=== PATIENT | male | born 1980 | race Caucasian/White ===

== ENCOUNTER 2023-03-21 13:58 | Inpatient (IN) ==
--- NOTE | 2023-03-21 14:12 | ED Triage Note ---
Date of Service March 21, 2023 Provider in Triage Author: Wade Florez. History of Present Illness This patient was briefly evaluated while in triage. An abbreviated physical exam was performed. This patient is a 42-year-old Male who presents to the ED for evaluation of worsening epigastric pain nausea vomiting diarrhea since Sunday. Eyes are now yellow. Family history of gallbladder problems. He states he has had problems with it over the past few years. No prior diagnostic studies. Symptoms are worsened by different food intake. [place] like he could not breathe on Sunday felt like he was having a heart attack. Physical Exam CONSTITUTIONAL: in no acute pain or distress, resting comfortably EYES: scleral icterus SKIN: pink, warm, dry CARDIAC: regular rate and rhythm RESPIRATORY: in no respiratory distress, lungs clear to auscultation ABDOMEN: mild epigastric tender Initial orders for labs and / or imaging were placed and patient was placed in the waiting area until a bed is available. Please see further documentation for the full ED course.
--- NOTE | 2023-03-21 14:50 | XRay Report ---
XR chest 1V not portable HISTORY: episodic epigastric pain/dyspnea COMPARISON: Chest 06/06/2013 FINDINGS: The lungs are clear. Cardiac silhouette is normal in size. No pleural effusions. No pneumot horax. Small nodular density within the right lateral lung base favors a nipple shadow. This will be assessed on the same day abdomen and pelvis CT. IMPRESSION: 1. No acute process within the chest. 2. A small nodular density within the right lateral lung base favors a nipple shadow and will be bett er assessed on the same day abdomen and pelvis CT ACT 112: Negative or not required by law. Electronically signed by: Dc Vega M.D. 03/21/2023 2:49 PM
[2023-03-21 15:07] LABS: Basophils # (auto) 0.02 K/uL (0.00-0.20); Basophils % (auto) 0.4 %; Eosinophils # (auto) 0.11 K/uL (0.00-0.50); Eosinophils % (auto) 2.1 %; Hemoglobin 19.1 g/dl (14.0-18.0); Immature Granulocytes # (auto) 0.02 K/uL (0.01-0.20); Immature Granulocytes % (auto) 0.4 %; Lymphocytes # (auto) 1.19 K/uL (1.20-3.40); Mean Corpuscular Hemoglobin 34.1 pg (25.0-34.0); Mean Corpuscular Hgb Conc 35.4 g/dL (32.0-36.0); Mean Corpuscular Volume 96.4 fL (80.0-100.0); Mean Platelet Volume 10.3 fL (9.4-12.4); Monocytes # (auto) 0.56 K/uL (0.11-0.59); Monocytes % (auto) 10.8 %; Neutrophils # (auto) 3.27 K/uL (1.40-6.50); Neutrophils % (auto) 63.3 %; Platelet Count 199 K/uL (130-400); RDW Coefficient of Variation 13.2 % (11.5-14.5); RDW Standard Deviation 47.1 fL (36.4-46.3); White Blood Count 5.17 K/ul (4.8-10.8)
[2023-03-21 15:25] LABS: Albumin Globulin Ratio 1.6 (0.9-2); Albumin Level 4.4 gm/dl (3.4-5.0); BUN Creatinine Ratio 6.5 (10-20); Creatinine Clr Calc Pharmacy 123.7 ml/min; Est GFR (African American) 116.9 ml/min; Est GFR (Non-African American) 100.9 ml/min; Globulin 2.7 gm/dl (2.5-4.0); Potassium 3.6 mmol/L (3.5-5.1); Total Protein 7.1 gm/dl (6.0-8.3)
[2023-03-21 15:31] LABS: Troponin I High Sensitivity 3.2 pg/ml (0-20)
[2023-03-21] MEDS ORDERED: OPTIRAY 320 500ml IV ONE (15:42)
--- NOTE | 2023-03-21 16:13 | CT Scan Report ---
CT SCAN OF THE ABDOMEN AND PELVIS WITH IV CONTRAST CLINICAL HISTORY: Epigastric abdominal pain. Vomiting and diarrhea. Jaundice. COMPARISON STUDY: Abdominal ultrasound dated 10/06/2013. TECHNIQUE: Following the IV administration of 80 cc of Optiray 320, CT scan of the abdomen and pelvi s is performed from the lung bases to the proximal femora. Images are reviewed in the axial, sagittal , and coronal planes. IV contrast was administered without complication. A dose lowering technique wa s utilized adhering to the principles of ALARA. CT DOSE: 1308.19 mGy.cm FINDINGS: Lung bases: The heart is normal in size and without pericardial effusion. A low suspicion 4 mm pleura l-based nodule at the right lung base is seen on image #39. The lung bases are otherwise clear noting mild bibasilar atelectasis. Liver: The contrast-enhanced liver is normal in size, contour, and attenuation. There is mild intrahe patic biliary ductal dilatation. The hepatic veins and portal veins are patent. Gallbladder: The gallbladder is mildly distended and contains stones/sludge. There is no CT evidence of acute cholecystitis. The common bile duct is dilated, measuring up to 13 mm in diameter. Spleen: Normal in size and attenuation. Pancreas: Unremarkable. Adrenal glands: Unremarkable. Kidneys: The contrast enhanced kidneys are normal in size and without hydronephrosis. The kidneys enh ance symmetrically. A 1.9 cm cyst is noted in the right lower pole. Abdominal vasculature: The abdominal aorta is normal in course and caliber. Bowel: There is no bowel obstruction. The appendix is well-visualized and normal. Peritoneum: There is no intraperitoneal free air or abdominal ascites. There is a fat-containing umbi lical hernia. Lymphadenopathy: None. Pelvic viscera: The bladder, prostate, and seminal vesicles are normal as imaged. Skeletal structures: No lytic or blastic lesions are seen. IMPRESSION: 1. There is mild intra and extrahepatic biliary ductal dilatation. No obstructing stone or lesion is clearly identified by CT. 2. There are gallstones and biliary sludge with no CT evidence of acute cholecystitis. Consider a rig ht upper quadrant ultrasound in follow-up to further assess these findings. 3. Additional findings as above. ACT 112: Negative or not required by law. Electronically signed by: Otoniel De Anda M.D. 03/21/2023 4:10 PM
[2023-03-21] MEDS ORDERED: PIPERACILLIN/TAZOBACTAM 4.5 GM/100 ML BAG IV ONE (16:41)
[2023-03-21] MEDS ORDERED: SODIUM CHLORIDE 0.9% 1,000 ML IV ONE (16:42)
--- NOTE | 2023-03-21 16:52 | Emergency Department Note ---
Impression & Plan Jaundice, Alcohol use, Abdominal pain, Elevated LFTs, Gallstone, Hyperbilirubinemia ED Provider Note NAME: HANNAH JARA AGE: 42 SEX: M : 1980 ARRIVES VIA: Walk-In INFORMANT: Patient, ED PROVIDER(S): Lazaro Gamble DO CHIEF COMPLAINT: Abdominal pain HPI: The patient is a 42-year-old male who does have a history of chronic alcohol use who presented to the emergency department for abdominal pain. The patient describes right upper quadrant abdominal pain which began over the course the last few days. It does worsen with food. The patient denies having any fever or vomiting. He has noticed that his urine has become dark. He has not been seen by his family doctor. The patient currently does not have a family doctor. ROS: See above HPI for pertinent positives & negatives. A total of 10 systems reviewed and were otherwise negative. PAST MEDICAL HISTORY: See Below PAST SURGICAL HISTORY: See Below FAMILY HISTORY: See Below SOCIAL HISTORY: See Below HOME MEDICATIONS: See Below ALLERGIES: See Below VITALS: See Below PHYSICAL EXAMINATION: GENERAL: Patient is awake alert in no acute distress patient is resting comfortably and showing no signs of anxiety EYES: The conjunctivae are icteric. The pupils are round and reactive. EARS, NOSE, MOUTH AND THROAT: The nose is without any evidence of any deformity. NECK: The neck is nontender and supple. RESPIRATORY: Normal respiratory effort is noted there is no evidence of wheezing rhonchi or rales CARDIOVASCULAR: Regular rate and rhythm noted there no murmurs rubs or gallops normal S1 normal S2. GASTROINTESTINAL: The abdomen is soft. There is right upper quadrant tenderness palpation but there is no guarding rigidity MUSCULOSKELETAL/EXTREMITIES: There is no evidence of gross deformity full range of motion is noted in the hips and shoulders. SKIN: There is no obvious evidence of any rash. There are no petechiae, pallor or cyanosis noted. NEUROLOGIC: Patient is awake alert and oriented x3 MEDICAL DECISION MAKING: The patient is a 42-year-old male who presented to the emergency department for an evaluation of abdominal pain. The patient does have a history of alcohol use. The patient was found to have signs of elevated bilirubin and gallstones noted on CT. The patient had the possibility of obstructive jaundice noted on CT with ductal dilatation. This could be secondary to gallstone or possibly related to his underlying alcohol use. I discussed his condition with the blocker and polisher. He was treated with IV fluids and IV antibiotics. He was reevaluated multiple times. At this time he will likely require an ERCP. I discussed his condition with the on-call [facility]. They have agreed to evaluate the patient in the emergency department for further management and disposition. Triage Nursing notes reviewed. Prior medical records reviewed Vital Signs: reviewed and remarkable for elevated blood pressure. Differential diagnosis: Etiologies such as appendicitis, diverticulitis, obstruction, inflammatory bowel disease, renal colic, PUD, biliary pathology, pancreatitis, mesenteric ischemia, aortic pathology, infections, genitourinary, UTI, perforated viscus, as well as others were entertained. ER treatment provided: See below Diagnostics interpreted by me: ECG: EKG was obtained in the emergency department. My interpretation is sinus tachycardia at [address] segment abnormalities were noted. No previous tracing was available Cardiac Monitoring: An order was placed for continuous cardiac monitoring. The monitor shows a rate of 94 bpm with sinus rhythm Laboratory studies: As stated above and show below. Imaging studies: See below. Radiographic imaging was reviewed by myself Consultation(s): I discussed this case with Dr. Arnett who is on for gastroenterology. I discussed this case with Phyllis who was economic development coordinator for the [facility] Past Med/Surg History Medical History (Updated 03/21/23 @ 21:07 by Lazaro Gamble DO) Alcohol use Fx metatarsal-closed Infectious mononucleosis Surgical History (Updated 03/21/23 @ 18:02 by Yolanda Fernandes PA-C) H/O foot surgery Family History (Updated 03/21/23 @ 18:01 by Yolanda Fernandes PA-C) Father FH: cirrhosis Social History (Updated 03/21/23 @ 18:04 by Yolanda Fernandes PA-C) Smoking Status: Former smoker Hx Alcohol Use: Yes Hx Substance Use: Yes Prescribed Medications: Marijuana Feels Safe at Home: Yes Allergies Allergies Allergy/AdvReac Type Severity Reaction Status Date / Time No Known Allergies Allergy Unknown Verified 03/17/08 18:22 Results & Data (ED) Vital Signs Vital Signs - 24 hr 03/21/23 14:03 03/21/23 16:01 03/21/23 16:02 Temperature 36.8 C Temperature Source Temporal Artery Scan Pulse Rate 111 H Pulse Rate [Finger] 114 H Respiratory Rate 18 20 Respiratory Effort / Characteristics Non-Labored Spontaneous Non-Labored Spontaneous Respiratory Depth Normal Normal Respiratory Pattern Regular Regular Blood Pressure 133/95 Blood Pressure [Right Arm] 131/98 Blood Pressure Mean 107 Blood Pressure Mean [Right Arm] 109 Blood Pressure Position Sitting Pulse Oximetry 96 98 Oxygen Delivery Method Room Air Room Air Room Air Sepsis Recent Fever Within 48 Hours No Sepsis New/Unexplained Change in Mental Status No Sepsis Action Taken by Nursing No Action Required 03/21/23 16:57 03/21/23 16:58 03/21/23 17:00 Temperature Temperature Source Pulse Rate 108 H 105 H 101 H Pulse Rate [Finger] Respiratory Rate 12 10 L Respiratory Effort / Characteristics Respiratory Depth Respiratory Pattern Blood Pressure Blood Pressure [Right Arm] Blood Pressure Mean Blood Pressure Mean [Right Arm] Blood Pressure Position Pulse Oximetry Oxygen Delivery Method Sepsis Recent Fever Within 48 Hours Sepsis New/Unexplained Change in Mental Status Sepsis Action Taken by Snf Medications Current Medication List: was personally reviewed by me Laboratory Data Attestation: I reviewed the patient's lab results. 03/21/23 14:30 03/21/23 14:30 Lab Results 03/21/23 03/21/23 Range/Units 14:30 17:11 WBC 5.17 (4.8-10.8) K/ul RBC 5.60 (4.70-6.10) M/uL Hgb 19.1 H (14.0-18.0) g/dl Hct 54.0 H (42.0-52.0) % MCV 96.4 (80.0-100.0) fL MCH 34.1 H (25.0-34.0) pg MCHC 35.4 (32.0-36.0) g/dL RDW Std Deviation 47.1 H (36.4-46.3) fL RDW Coeff of Bishop 13.2 (11.5-14.5) % Plt Count 199 (130-400) K/uL MPV 10.3 (9.4-12.4) fL Immature Gran % (Auto) 0.4 % Neut % (Auto) 63.3 % Lymph % (Auto) 23.0 % [place] % (Auto) 10.8 % Eos % (Auto) 2.1 % Baso % (Auto) 0.4 % Neut # (Auto) 3.27 (1.40-6.50) K/uL Lymph # (Auto) 1.19 L (1.20-3.40) K/uL [place] # (Auto) 0.56 (0.11-0.59) K/uL Eos # (Auto) 0.11 (0.00-0.50) K/uL Baso # (Auto) 0.02 (0.00-0.20) K/uL Immature Gran # (Auto) 0.02 (0.01-0.20) K/uL Sodium 138 (136-145) mmol/L Potassium 3.6 (3.5-5.1) mmol/L Chloride 102 (98-107) mmol/L Carbon Dioxide 24 (21-32) mmol/L Anion Gap 12 H (3-11) BUN 6 (6-23) mg/dl Creatinine 0.93 (0.6-1.4) mg/dl Est Cr Clr Drug Dosing 123.7 ml/min Est GFR ( Amer) 116.9 ml/min Est GFR (Non-Af Amer) 100.9 ml/min BUN/Creatinine Ratio 6.5 L (10-20) Glucose 111 H (70-99(Fasting)) mg/dl Calcium 10.0 (8.6-10.3) mg/dl Total Bilirubin 8.0 H (0.2-1.0) mg/dl Direct Bilirubin 4.4 H (0-0.2) mg/dl AST 278 H (13-39) U/L ALT 347 H (7-52) U/L Alkaline Phosphatase 101 (34-104) U/L Troponin I High Sens 3.2 (0-20) pg/ml Total Protein 7.1 (6.0-8.3) gm/dl Albumin 4.4 (3.4-5.0) gm/dl Globulin 2.7 (2.5-4.0) gm/dl Albumin/Globulin Ratio 1.6 (0.9-2) Lipase 24 (11-82) U/L Ethyl Alcohol mg/dL < 10.0 (<10.0) mg/dl Administered Medications Discontinued Medications Piperacillin Sod/Tazobactam Sod (Zosyn) 4.5 gm in 100 mls @ 200 mls/hr IV NOW ONE Stop: 03/21/23 17:10 Last Admin: 03/21/23 16:55 Dose: 200 mls/hr Documented By: TWILA Sodium Chloride (Nss) 1,000 mls @ 999 mls/hr IV .Q1H1M ONE Stop: 03/21/23 17:42 Last Admin: 03/21/23 16:52 Dose: 999 mls/hr Documented By: TWILA Ioversol (Optiray 320 500ml) 80 ml IV ONCE ONE Stop: 03/21/23 15:43 Last Admin: 03/21/23 15:42 Dose: 80 ml Documented By: BRADEN Imaging Data Attestation: I personally reviewed and interpreted this imaging study as follows: My Impression: CT of the abdomen and pelvis was obtained in the emergency department. My interpretation is no free air or signs of bowel obstruction, final report below Radiologist's Impression: Abdomen/Pelvis CT 03/21/23 14:07 CT SCAN OF THE ABDOMEN AND PELVIS WITH IV CONTRAST CLINICAL HISTORY: Epigastric abdominal pain. Vomiting and diarrhea. Jaundice. COMPARISON STUDY: Abdominal ultrasound dated 10/06/2013. TECHNIQUE: Following the IV administration of 80 cc of Optiray 320, CT scan of the abdomen and pelvis is performed from the lung bases to the proximal femora. Images are reviewed in the axial, sagittal, and coronal planes. IV contrast was administered without complication. A dose lowering technique was utilized adhering to the principles of ALARA. CT DOSE: 1308.19 mGy.cm FINDINGS: Lung bases: The heart is normal in size and without pericardial effusion. A low suspicion 4 mm pleural-based nodule at the right lung base is seen on image #39. The lung bases are otherwise clear noting mild bibasilar atelectasis. Liver: The contrast-enhanced liver is normal in size, contour, and attenuation. There is mild intrahepatic biliary ductal dilatation. The hepatic veins and portal veins are patent. Gallbladder: The gallbladder is mildly distended and contains stones/sludge. There is no CT evidence of acute cholecystitis. The common bile duct is dilated, measuring up to 13 mm in diameter. Spleen: Normal in size and attenuation. Pancreas: Unremarkable. Adrenal glands: Unremarkable. Kidneys: The contrast enhanced kidneys are normal in size and without hydronephrosis. The kidneys enhance symmetrically. A 1.9 cm cyst is noted in the right lower pole. Abdominal vasculature: The abdominal aorta is normal in course and caliber. Bowel: There is no bowel obstruction. The appendix is well-visualized and normal. Peritoneum: There is no intraperitoneal free air or abdominal ascites. There is a fat-containing umbilical hernia. Lymphadenopathy: None. Pelvic viscera: The bladder, prostate, and seminal vesicles are normal as imaged. Skeletal structures: No lytic or blastic lesions are seen. IMPRESSION: 1. There is mild intra and extrahepatic biliary ductal dilatation. No obstructing stone or lesion is clearly identified by CT. 2. There are gallstones and biliary sludge with no CT evidence of acute cholecystitis. Consider a right upper quadrant ultrasound in follow-up to further assess these findings. 3. Additional findings as above. ACT 112: Negative or not required by law. Electronically signed by: Otoniel De Anda M.D. 03/21/2023 4:10 PM Chest X-Ray 03/21/23 14:08 XR chest 1V not portable HISTORY: episodic epigastric pain/dyspnea COMPARISON: Chest 06/06/2013 FINDINGS: The lungs are clear. Cardiac silhouette is normal in size. No pleural effusions. No pneumothorax. Small nodular density within the right lateral lung base favors a nipple shadow. This will be assessed on the same day abdomen and pelvis CT. IMPRESSION: 1. No acute process within the chest. 2. A small nodular density within the right lateral lung base favors a nipple shadow and will be better assessed on the same day abdomen and pelvis CT ACT 112: Negative or not required by law. Electronically signed by: Dc Vega M.D. 03/21/2023 2:49 PM Discharge Plan Visit Data Chief Complaint: Abdominal Pain Stated Complaint: PROBLEMS WITH GALLBLADDER ED Provider: Lazaro Gamble Discharge Problem: Jaundice, Alcohol use, Abdominal pain, Elevated LFTs, Gallstone, Hyperbilirubinemia Patient Disposition: Admitted As Inpatient Discharge Instructions Interventions: ED Discharge Assessment Last Done: 03/21/23 20:32 Discharge Problem: Abdominal pain Qualifiers: Abdominal location: upper abdomen, unspecified Qualified Code(s): R10.10 - Upper abdominal pain, unspecified Gallstone Qualifiers: Cholecystitis presence: without cholecystitis Biliary obstruction: with biliary obstruction Qualified Code(s): K80.21 - Calculus of gallbladder without cholecystitis with obstruction
[2023-03-21 17:00] LABS: Bilirubin Direct 4.4 mg/dl (0-0.2)
--- NOTE | 2023-03-21 17:44 | History & Physical Report ---
Date of Service March 21, 2023 Assessment & Plan (1) Abdominal pain: (2) Hyperbilirubinemia: (3) Elevated LFTs: (4) Gallstone: Plan: Patient is 42 year old male with PMH ETOH use, medical marijuana use for anxiety, presented to ER with c/o epigastric abdominal pain x 5 days, dark urine, yellow stools. Intermittent epigastric pain after eating fatty foods x 1 year. In ER afebrile, P: 111, BP: 133/95, R: 18, 96% on RA No leukocytosis, T Bili: 8, AST: 278, ALT: 347, Alk Phos: 101, Lipase: WNL CT abd/pelvis: There is mild intra and extrahepatic biliary ductal dilatation. No obstructing stone or lesion is clearly identified by CT. There are gallstones and biliary sludge with no CT evidence of acute cholecystitis. In ER given 1L NSS, Zosyn Currently denies abdominal pain Biliary Colic. Suspect possible passed gallstone or obstructing gallstone NPO midnight IVF Antiemetics, pain medications as needed. US gallbladder GI consult. section hand helper GI contact by ER physician recommends admission for possible procedure tomorrow General surgery consult CBC, CMP in am (5) Sinus tachycardia: Plan: EK, sinus tachycardia per my interpretation IVF Monitor on telemetry (6) Alcohol use: Plan: Drinks 4-8 glasses wine daily. Reported last drink 5 days ago ETOH cessation recommended DVT Prophylaxis SCDs Full Code as per discussion with pt Does not follow with PCP for routine care Pt was seen and care coordinated with Dr Hurley. See addendum History of Present Illness Chief Complaint: Abdominal pain Primary Care Provider: NO PCP Patient is 42 year old male with PMH ETOH use, medical marijuana use for anxiety, presented to ER with c/o abdominal pain x 5 days. History obtained from patient and patient's girlfriend. States for past year having intermittent epigastric pain with eating fatty foods and sometimes with spicy foods. 5 days ago epigastric pain was sharp and radiates to back. Pain across upper abdomen. The last couple days the pain was worse and has continued intermittently. When had the epigastric pain he felt like he was having trouble taking a breath. Otherwise denies SOB or chest pain. Hasn't been eating much past several days. Stools have been loose and watery. Past couple of days stools are yellow in coloration. Past couple days noticed eyes looked yellow. Urine is dark in coloration. States currently not having abdominal pain. Drinks 4-8 glasses of wine daily. Last drank ETOH 5 days ago. Denies history of ETOH withdrawal, seizures or DT's in past. Denies itching. Denies fever/chills, diaphoresis, PANIAGUA, dizziness, syncope, vision changes, neck pain, CP, SOB, palpitations, cough, sore throat, choking, otalgia, rhinorrhea, paresthesias, weakness, extremity edema, rashes, dysuria, hematuria, urinary frequency. Allergies Allergy/AdvReac Type Severity Reaction Status Date / Time No Known Allergies Allergy Unknown Verified 03/17/08 18:22 Past Med/Surg History Medical History (Updated 03/21/23 @ 18:38 by Yolanda Fernandes PA-C) Alcohol use Fx metatarsal-closed Infectious mononucleosis Surgical History (Updated 03/21/23 @ 18:02 by Yolanda Fernandes PA-C) H/O foot surgery Family History (Updated 03/21/23 @ 18:01 by Yolanda Fernandes PA-C) Father FH: cirrhosis Social History (Updated 03/21/23 @ 18:04 by Yolanda Fernandes PA-C) Smoking Status: Former smoker Hx Alcohol Use: Yes Hx Substance Use: Yes Prescribed Medications: Marijuana Feels Safe at Home: Yes Review of Systems Review of Systems: All systems reviewed & are unremarkable except as noted in HPI & below Physical Exam Physical Exam: PE per Dr Hurley Results & Data Results & Data Vital Signs (Past 12 Hours) Vital Signs Temp Pulse Pulse Resp BP BP Pulse Ox 03/21/23 16:58 105 H 03/21/23 16:02 03/21/23 16:01 114 H 20 131/98 98 03/21/23 14:03 36.8 C 111 H 18 133/95 96 O2 Del Method 03/21/23 16:58 03/21/23 16:02 Room Air 03/21/23 16:01 Room Air 03/21/23 14:03 Room Air Laboratory Results Short CBC 03/21/23 Range/Units 14:30 WBC 5.17 (4.8-10.8) K/ul Hgb 19.1 H (14.0-18.0) g/dl Hct 54.0 H (42.0-52.0) % Plt Count 199 (130-400) K/uL BMP 03/21/23 14:30 Sodium 138 Potassium 3.6 Chloride 102 Carbon Dioxide 24 BUN 6 Creatinine 0.93 Glucose 111 H Calcium 10.0 Liver Function 03/21/23 Range/Units 14:30 Total Bilirubin 8.0 H (0.2-1.0) mg/dl Direct Bilirubin 4.4 H (0-0.2) mg/dl AST 278 H (13-39) U/L ALT 347 H (7-52) U/L Alkaline Phosphatase 101 (34-104) U/L Albumin 4.4 (3.4-5.0) gm/dl Diagnostic Findings Abdomen/Pelvis CT 03/21/23 14:07 CT SCAN OF THE ABDOMEN AND PELVIS WITH IV CONTRAST CLINICAL HISTORY: Epigastric abdominal pain. Vomiting and diarrhea. Jaundice. COMPARISON STUDY: Abdominal ultrasound dated 10/06/2013. TECHNIQUE: Following the IV administration of 80 cc of Optiray 320, CT scan of the abdomen and pelvis is performed from the lung bases to the proximal femora. Images are reviewed in the axial, sagittal, and coronal planes. IV contrast was administered without complication. A dose lowering technique was utilized adhering to the principles of ALARA. CT DOSE: 1308.19 mGy.cm FINDINGS: Lung bases: The heart is normal in size and without pericardial effusion. A low suspicion 4 mm pleural-based nodule at the right lung base is seen on image #39. The lung bases are otherwise clear noting mild bibasilar atelectasis. Liver: The contrast-enhanced liver is normal in size, contour, and attenuation. There is mild intrahepatic biliary ductal dilatation. The hepatic veins and portal veins are patent. Gallbladder: The gallbladder is mildly distended and contains stones/sludge. There is no CT evidence of acute cholecystitis. The common bile duct is dilated, measuring up to 13 mm in diameter. Spleen: Normal in size and attenuation. Pancreas: Unremarkable. Adrenal glands: Unremarkable. Kidneys: The contrast enhanced kidneys are normal in size and without hydronephrosis. The kidneys enhance symmetrically. A 1.9 cm cyst is noted in the right lower pole. Abdominal vasculature: The abdominal aorta is normal in course and caliber. Bowel: There is no bowel obstruction. The appendix is well-visualized and normal. Peritoneum: There is no intraperitoneal free air or abdominal ascites. There is a fat-containing umbilical hernia. Lymphadenopathy: None. Pelvic viscera: The bladder, prostate, and seminal vesicles are normal as imaged. Skeletal structures: No lytic or blastic lesions are seen. IMPRESSION: 1. There is mild intra and extrahepatic biliary ductal dilatation. No obstructing stone or lesion is clearly identified by CT. 2. There are gallstones and biliary sludge with no CT evidence of acute cholecystitis. Consider a right upper quadrant ultrasound in follow-up to further assess these findings. 3. Additional findings as above. ACT 112: Negative or not required by law. Electronically signed by: Otoniel De Anda M.D. 03/21/2023 4:10 PM Chest X-Ray 03/21/23 14:08 XR chest 1V not portable HISTORY: episodic epigastric pain/dyspnea COMPARISON: Chest 06/06/2013 FINDINGS: The lungs are clear. Cardiac silhouette is normal in size. No pleural effusions. No pneumothorax. Small nodular density within the right lateral lung base favors a nipple shadow. This will be assessed on the same day abdomen and pelvis CT. IMPRESSION: 1. No acute process within the chest. 2. A small nodular density within the right lateral lung base favors a nipple shadow and will be better assessed on the same day abdomen and pelvis CT ACT 112: Negative or not required by law. Electronically signed by: Dc Vega M.D. 03/21/2023 2:49 PM Supervising Physician Co-Signing Physician Notes History and physical exam performed by me 42 year old man who presents with chronic intermittent upper abd pain. Reports pain has been ongoing for about a year. Usually associated with certain fatty/starchy foods. However, recent episode started on Sunday (5 days ago) and was severe, referred to the back Associated with yellowish stool and darker urine Also noticed yellowish discoloration of his eyes Denied fever, chills, nausea, vomiting, chest pain, abd pain. Drinks alcohol usually 4-8 glasses of wine daily. Last drink was 5 days ago Father had alcoholic cirrhosis On exam General: Well hydrated, no acute distress and not ill appearing Eyes: PERRL, conjunctivae normal, not pale, +icterus, EOM intact bilaterally ENMT: External ear and nose normal, oropharynx normal Respiratory: Normal respiratory effort, no respiratory distress, lungs clear to auscultation, no crackles and no wheezes Cardiovascular: Pulse is RRR. S1 S2 Gastrointestinal (Abdomen): Abdomen is not distended, soft, non-tender to palpation, no guarding, no palpable hepatosplenomegaly, normal bowel sounds Musculoskeletal: No pedal edema Neurologic: Alert and oriented x 3, No focal weakness, sensation grossly intact Psychiatric: Alert and oriented x 3, euthymic affect Labs notable for Hb/HCt of 19.1/54, Total robin 8, direct robin 4.4, AST 278, ALT 347 CT abd/P noted mild intra and extrahepatic biliary ductal dilatation, no obstructing stone/lesion clearly identified. Has gallstones and biliary sludge with no evidence of cholecystitis. Abdominal pain Likely Biliary colic Gall stone Hyperbilirubinemia, likely obstructive based on history and CT findings. No fever, no leukocytosis Got zosyn in ER. Will hold off further antibiotics for now GI consult Will keep NPO PMN for possible ERCP tomorrow depending on GI eval Monitor LFTs Counseled patient regarding alcohol use. He stated he plans to quit completely with current ailment Gen surg c/s for possible cholecystectomy inpatient or outpatient IVF I spent a total of 45 minutes coordinating, documenting and providing care for this patient excluding time spent in performance of separately billed services
[2023-03-21 19:40] LABS: Appearance Urine Clear (Clear); Blood Urine Negative (Negative); Color Urine Dark Yellow; Glucose Urine UA Negative (Negative); Ketones Urine 1+ (Negative); Leukocyte Esterase Urine Negative (Negative); Nitrite Urine Negative (Negative); Protein Urine Negative (Negative); Specific Gravity Urine > 1.045 (1.000-1.030); Urobilinogen Urine Positive (Negative); pH Urine 5.5 (4.5-7.5)
[2023-03-21 19:44] LABS: Bilirubin Urine 1+ (Negative)
[2023-03-21] MEDS ORDERED: POLYETHYLENE (MIRALAX) 17 GM PACK PO PRN (20:34)
[2023-03-21] MEDS ORDERED: ONDANSETRON INJ 2 MG/ML 2 ML VIAL IV PRN (20:34)
[2023-03-21] MEDS ORDERED: KETOROLAC TROMETHAMINE 15 MG/ML VIAL IV PRN (20:34)
[2023-03-21] MEDS: SODIUM CHLORIDE 0.9% 1,000 ML IV SCH (21:00)
--- NOTE | 2023-03-21 21:01 | Ultrasound Report ---
Exam(s): US GALLBLADDER EXAM: US Abdomen Limited, Gallbladder CLINICAL HISTORY: Reason for exam: gallstones. TECHNIQUE: Real-time ultrasound of the right upper quadrant with image documentation. COMPARISON: No relevant prior studies available. FINDINGS: Gallbladder: Sludge and stones within the gallbladder the gallbladder is distended. The sonographic Goncalves sign is not recorded, if high clinical suspicion for acute cholecystitis recommend nuclear medicine HIDA scan for further evaluation. Common bile duct: The CBD measures 10 cm. No intrahepatic ductal dilatation. No stones. Pancreas: Unremarkable as visualized. IMPRESSION: 1. Distended gallbladder with sludge and stones. The sonographic Goncalves sign is not recorded, if high clinical suspicion for acute cholecystitis recommend nuclear medicine HIDA scan for further evaluation. 2. The CBD measures 10 cm. No intrahepatic ductal dilatation. Electronically signed by: Deidre Arauz MD 03/21/23 21:00 PM
[2023-03-21] MEDS: ACETAMINOPHEN 1,000 MG/100 ML VIAL IV PRN (23:40)
[2023-03-22] MEDS: SODIUM CHLORIDE 0.9% 1,000 ML IV SCH (06:37)
[2023-03-22 07:55] LABS: Hematocrit (blood only) 48.9 % (42.0-52.0); Hemoglobin 16.2 g/dl (14.0-18.0); Mean Corpuscular Hemoglobin 33.3 pg (25.0-34.0); Mean Corpuscular Hgb Conc 33.1 g/dL (32.0-36.0); Mean Corpuscular Volume 100.4 fL (80.0-100.0); Mean Platelet Volume 10.2 fL (9.4-12.4); Platelet Count 161 K/uL (130-400); RDW Coefficient of Variation 13.2 % (11.5-14.5); RDW Standard Deviation 49.5 fL (36.4-46.3); Red Blood Count 4.87 M/uL (4.70-6.10); White Blood Count 3.75 K/ul (4.8-10.8)
[2023-03-22 08:13] LABS: Albumin Globulin Ratio 1.7 (0.9-2); Albumin Level 3.5 gm/dl (3.4-5.0); Bilirubin,Total 5.4 mg/dl (0.2-1.0); Calcium 8.7 mg/dl (8.6-10.3); Creatinine Clr Calc Pharmacy 132.2 ml/min; Est GFR (African American) 123.4 ml/min; Est GFR (Non-African American) 106.5 ml/min; Globulin 2.1 gm/dl (2.5-4.0); Potassium 3.7 mmol/L (3.5-5.1); Total Protein 5.6 gm/dl (6.0-8.3)
--- NOTE | 2023-03-22 09:00 | Gastrointestinal Consultation ---
Date of Consultation March 22, 2023 Assessment & Plan (1) Jaundice: (2) Abdominal pain: (3) Dilated bile duct: Plan This presentation of el LFTs, gallstones, robin dil is very suggestive of choledocholithiasis. 1. ERCP today by Dr. Wills. 2. Keep NPO. 3. Continue Zosyn (chills) 4. Further recommendations to follow ERCP. Procedure explained including indication, risks of bleeding, infection, bile duct perforation and infection. Pt would like to go forward w procedure. 5. Briefly discussed his risk for alcohol associated liver dx and advised to abstain from alcohol. No suggestion of cirrhosis on imaging and platelets are normal though on the low side). Supervising Physician Co-Signing Physician Notes I performed a history and physical examination of the patient today, including specifically on physical exam - soft abdomen. I have discussed the patient's management with the advanced practitioner. Please refer to the nurse practitioner's note for the documented findings and plan of care. EUS/ERCP Patient was explained in detail regarding risks, benefits, limitations and alternatives of the above endoscopic procedure. Risks of intravenous sedation used for procedure were also explained. Risks include, but not limited to perforation, bleeding, infection, respiratory distress, cardiac arrest and . Patient is also aware about the possibility of missed lesion. Patient's q uestions were answered. The patient verbalized understanding the information and agreed to undergo the procedure. History of Present Illness Reason for Consultation: elevated LFTs Requesting Physician: Phyllis Ling Attending Physician: Glenda Licea MD History of Present Illness Mr. Emmett Howard is a 42 yr old male w/o a PCP, w a hx of increased ETOH intake (4-8/night but not every night since about age 18 - abstained x about 10 days), medical marijuana use for anxiety, who presented to the ED for epigastric pain which has been present intermittently, after eating high fat foods for appox one year. As pain persisted for about 5 days, he presented to the ED where LFTs were elevated (T Bili 8 ->5 today, AST 278, ALT 347, ALk PHos 101). In the past 5 days, he has had dark urine and light colored BMs. He has had diarrhea and nausea w the pain but no vomiting. He felt chills/sweats lasts night. On arrival, US w gallstones, 10mm CBD. CT w mild I/E robin dil. He is awake, alert, oriented. He is currently AA) and comfortable. His mother/grandmother had gallbladder dx, father of ETOH cirrhosis. Allergies Allergy/AdvReac Type Severity Reaction Status Date / Time No Known Allergies Allergy Unknown Verified 03/17/08 18:22 Patient History Medical History (Updated 03/22/23 @ 09:10 by FELIPE Brumfield) Alcohol use Fx metatarsal-closed Infectious mononucleosis Surgical History (Updated 03/21/23 @ 18:02 by Yolanda Fernandes PA-C) H/O foot surgery Family History (Updated 03/21/23 @ 18:01 by Yolanda Fernandes PA-C) Father FH: cirrhosis Social History (Updated 03/21/23 @ 18:04 by Yolanda Fernandes PA-C) Smoking Status: Never smoker Hx Alcohol Use: Yes Alcohol type: wine Hx Substance Use: Yes Prescribed Medications: Marijuana Last Used Substance Other:: Medical marijuana Preferred Language: Hungarian Communication Ability: Effective Airway Controller Required: No Beliefs That Will Affect Care: None Current Living Situation: Family Current Living Situation Comment: Lives with girlfriend and 3 children Feels Safe at Home: Yes Safety Concerns: Feels Safe At This Time Assistive Devices: None Review of Systems Review of Systems: ROS: Gen: subjective fever, No weakness or weight loss Eyes: + icterus, no eye pain or vision changes Resp: No SOB, no cough Cardio: No palpitations/irregular beats, no chest pain GI: As per HPI otherwise (-) : Denies pain on urination Skin: + jaundice/itching. No rashes or lesions. Physical Exam Constitutional: WD/WN, vitals as above Eyes: mild icterus, PEARLA ENMT: external ear and nose normal, oropharynx normal Neck: trachea midline, no thyromegaly Respiratory: normal respiratory effort, lungs clear to auscultation Cardiovascular: RRR, no murmur, no edema Gastrointestinal (Abdomen): normal bowel sounds, soft, nontender, no hepatosplenomegaly Musculoskeletal: no cyanosis or clubbing, extremities motor strength 5/5 Skin: + jaundice Neurologic: PERRL, EOMI, accommodation nl, no face palsy, no dysarthria Psychiatric: A+Ox3, euthymic affect Lymphatic: no cervical or axillary lymphadenopathy Results & Data Vital Signs (Past 12 Hours) Vital Signs Temp Pulse Pulse Resp BP Pulse Ox O2 Del Method 03/22/23 08:10 37.0 C 95 H 16 145/96 H 96 Room Air 03/22/23 07:42 74 03/22/23 03:29 36.9 C 84 20 119/87 95 Room Air 03/22/23 00:27 103 H 03/21/23 23:49 37.3 C 93 H 20 135/101 H 95 Room Air 03/21/23 21:05 94 H Laboratory Results WBC 3.75, Hb 16, Hct 48, Plts 161, Na 141, K 3.7, Cl 106, CO2 24, BUN 7, Cr 0.8, glucose 85. T [id number], ALT 309, Alk Phos 76 Diagnostic Findings GB US 03/22/23: 1. Distended gallbladder with sludge and stones. The sonographic Goncalves sign is not recorded, if high clinical suspicion for acute cholecystitis recommend nuclear medicine HIDA scan for further evaluation. 2. The CBD measures 10 cm. No intrahepatic ductal dilatation. CTAP w IV 03/22/23: 1. There is mild intra and extrahepatic biliary ductal dilatation. No obstructing stone or lesion is clearly identified by CT. 2. There are gallstones and biliary sludge with no CT evidence of acute cholecystitis. Consider a right upper quadrant ultrasound in follow-up to further assess these findings. (2) Abdominal pain Abdominal location: upper abdomen, unspecified Qualified Code(s): R10.10 - Upper abdominal pain, unspecified
[2023-03-22] MEDS: LACTATED RINGER'S 1,000 ML IV SCH (11:22)
[2023-03-22] MEDS ORDERED: ePHEDrine sulfate 50 MG/ML AMP IV PRN ×2 (11:46→11:52)
[2023-03-22] MEDS ORDERED: ATROPINE SULFATE 0.1 MG/ML 10ML SYR IV PRN ×2 (11:46→11:52)
[2023-03-22] MEDS ORDERED: ONDANSETRON INJ 2 MG/ML 2 ML VIAL IV PRN ×2 (11:46→11:52)
[2023-03-22] MEDS ORDERED: fentaNYL citrate PF 100 MCG/2 ML VIAL IV PRN ×2 (11:46→11:52)
--- NOTE | 2023-03-22 11:46 | Anesthesiology Consultation ---
Date of Service March 22, 2023 Assessment & Plan (1) Encounter for pre-operative examination: Chart Review Chart Review: Acceptable Risk for Surgery and Patient NOT seen in Pre Admission Testing Consults Requested none History Surgery Operation Date: 03/22/23 13:15 Proposed Procedures p Endoscopic Retrograde Cholangiopancreato - Tha Wills MD Height/Weight Height: 6 ft 3 in Weight: 98.7 kg Allergies Allergy/AdvReac Type Severity Reaction Status Date / Time No Known Allergies Allergy Unknown Verified 03/17/08 18:22 Medications Active Medications Generic Name Dose Route Start Last Admin Trade Name Freq PRN Reason Stop Dose Admin Sodium Chloride 1,000 mls @ 100 mls/hr 03/21/23 20:34 03/22/23 06:37 Nss IV 03/22/23 16:33 100 mls/hr .Q10H NICHOLAS Administration Acetaminophen 1,000 mg in 100 mls @ 400 mls/hr 03/21/23 20:34 03/22/23 00:10 Ofirmev IV 03/24/23 20:33 Infused Q12H PRN Infusion Pain or Fever Lactated Ringer's 1,000 mls @ 15 mls/hr 03/22/23 11:30 03/22/23 11:22 Lr IV 04/21/23 11:29 15 mls/hr .Q24H NICHOLAS Administration NPO Date Last Intake of Fluids: 03/21/23 Time Last Intake of Fluids: 23:00 Date Last Intake of Solids: 03/21/23 Time Last Intake of Solids: 23:00 Past Medical History Medical History Alcohol use Fx metatarsal-closed Infectious mononucleosis Past Family History Family History Father FH: cirrhosis Past Surgical History Surgical History H/O foot surgery Social History Smoking Status: Never smoker Hx Alcohol Use: Yes Alcohol type: wine alcohol intake frequency: 3 or more drinks per day Alcohol Intake Frequency Comment: States drinks 3-8 glasses of wine - 5 days a week. Last drink a week ago Hx Substance Use: Yes substance use type: marijuana Last Used Substance Other:: Medical marijuana Physical Exam Vital Signs Last Vital Signs Temp 99.0 F 01/18/24 11:12 Pulse 121 H 03/22/23 11:12 Resp 20 03/22/23 11:12 BP 146/109 H 03/22/23 11:12 Pulse Ox 97 03/22/23 11:12 O2 Del Method Room Air 03/22/23 11:12 Testing Laboratory Results 03/22/23 06:59 03/22/23 06:59 Urine Color Dark Yellow 03/21/23 19:29 Urine Appearance Clear (Clear) 03/21/23 19:29 Urine pH 5.5 (4.5-7.5) 03/21/23 19:29 Ur Specific [place] > 1.045 (1.000-1.030) H 03/21/23 19:29 Urine Protein Negative (Negative) 03/21/23 19:29 Urine Glucose (UA) Negative (Negative) 03/21/23 19:29 Urine Ketones 1+ (Negative) H 03/21/23 19:29 Urine Nitrite Negative (Negative) 03/21/23 19:29 Ur Leukocyte Esterase Negative (Negative) 03/21/23 19:29
[2023-03-22] MEDS ORDERED: PROPOFOL IV EMULSION 10 MG/ML 20 ML VIAL IV ONE (12:04)
[2023-03-22] MEDS ORDERED: GLYCOPYRROLATE 0.2 MG/ML VIAL ONE (12:04)
[2023-03-22] MEDS ORDERED: ONDANSETRON INJ 2 MG/ML 2 ML VIAL ONE (12:04)
[2023-03-22] MEDS ORDERED: fentaNYL citrate PF 100 MCG/2 ML VIAL ONE ×2 (12:04→12:27)
[2023-03-22] MEDS ORDERED: LIDOCAINE 2% 2 ML VIAL/AMP(20MG/ML) INFIL ONE (12:04)
[2023-03-22] MEDS ORDERED: INDOMETHACIN 50 MG SUPP PR ONE (12:41)
--- NOTE | 2023-03-22 13:01 | Operative Report ---
Post Operative Report Pre & Post Diagnosis Operation Date: 03/22/23 13:15 Pre-Op Diagnosis: ABD PAIN I identified the patient and participated in the time-out.: Yes Procedure Operation Date: 03/22/23 13:15 Actual Procedures p Esophagogastroduodenoscopy - Tha Wills MD Surgeon Tha Wills MD Rail Switchman None Estimated Blood Loss 0 Findings See Below (CBD stone removed, stents placed) Specimens None Description of Procedure EUS/ERCP I attest to the content of the Intraoperative Record and any orders documented therein. Any exceptions are noted below.
--- NOTE | 2023-03-22 13:11 | GI REPORT ---
Patient Name: Emmett Howard Procedure Date: 03/22/2023 12:03 PM Date of : 1980 Admit Type: Inpatient Age: 42 Gender: Male Attending MD: Tha Wills MD, Procedure: Upper GI endoscopy Providers: Tha Wills MD Referring MD: Glenda Licea Indications: Abdominal pain Medicines: Propofol per Anesthesia Complications: No immediate complications. Estimated Blood Loss: Estimated blood loss: none. Procedure: Pre-Anesthesia Assessment: - Prior to the procedure, a History and Physical was performed, and patient medications, allergies and sensitivities were reviewed. The patient's tolerance of previous anesthesia was reviewed. - The risks and benefits of the procedure and the sedation options and risks were discussed with the patient. All questions were answered and informed consent was obtained. - Patient identification and proposed procedure were verified prior to the procedure by the physician and the nurse. The procedure was verified in the procedure room. - Pre-procedure physical examination revealed no contraindications to sedation. After obtaining informed consent, the endoscope was passed under direct vision. Throughout the procedure, the patient's blood pressure, pulse, and oxygen saturations were monitored continuously. The Endoscope was introduced through the mouth, and advanced to the second part of duodenum. The upper GI endoscopy was accomplished without difficulty. The patient tolerated the procedure well. Findings: Esophagitis with no bleeding was found at the gastroesophageal junction. The entire examined stomach was normal. Mild inflammation characterized by erosions and erythema was found in the duodenal bulb. Impression: - Reflux esophagitis. - Normal stomach. - Duodenitis. - No specimens collected. Recommendation: - Follow an antireflux regimen. - Use Prilosec (omeprazole) 40 mg PO daily for 3 months. - Perform an upper endoscopic ultrasound (UEUS) today. Tha Wills MD 03/22/2023 1:11:21 PM This report has been signed electronically. Note Initiated On: 03/22/2023 12:03 PM Number of Addenda: 0 I attest to the content of the Intraoperative Record and orders documented therein, exceptions below {[id number]}
--- NOTE | 2023-03-22 13:13 | GI REPORT ---
Patient Name: Emmett Howard Procedure Date: 03/22/2023 12:04 PM Date of : 1980 Admit Type: Inpatient Age: 42 Gender: Male Attending MD: Tha Wills MD, Procedure: Upper EUS Providers: Tha Wills MD Referring MD: Glenda Licea Indications: Elevated liver enzymes, Suspected choledocholithiasis, Epigastric abdominal pain Medicines: Propofol per Anesthesia Complications: No immediate complications. Estimated Blood Loss: Estimated blood loss: none. Procedure: Pre-Anesthesia Assessment: - Prior to the procedure, a History and Physical was performed, and patient medications, allergies and sensitivities were reviewed. The patient's tolerance of previous anesthesia was reviewed. - The risks and benefits of the procedure and the sedation options and risks were discussed with the patient. All questions were answered and informed consent was obtained. - Patient identification and proposed procedure were verified prior to the procedure by the physician and the nurse. The procedure was verified in the procedure room. - Pre-procedure physical examination revealed no contraindications to sedation. After obtaining informed consent, the endoscope was passed under direct vision. Throughout the procedure, the patient's blood pressure, pulse, and oxygen saturations were monitored continuously. The scope was introduced through the mouth, and advanced to the second part of duodenum. The upper EUS was accomplished without difficulty. The patient tolerated the procedure well. Findings: ENDOSONOGRAPHIC FINDING: : There was no sign of significant endosonographic abnormality in the ampulla. No masses were identified. There was dilation in the common bile duct which measured up to 12 mm. One stone was visualized endosonographically in the common bile duct. It was hyperechoic and characterized by shadowing. Impression: - There was no sign of significant pathology in the ampulla. - There was dilation in the common bile duct which measured up to 12 mm. - One stone was visualized endosonographically in the common bile duct. Recommendation: - Perform an ERCP today. Tha Wills MD 03/22/2023 1:12:45 PM This report has been signed electronically. Note Initiated On: 03/22/2023 12:04 PM Number of Addenda: 0 I attest to the content of the Intraoperative Record and orders documented therein, exceptions below {[id number]}
--- NOTE | 2023-03-22 13:16 | GI REPORT ---
Patient Name: Emmett Howard Procedure Date: 03/22/2023 12:05 PM Date of : 1980 Admit Type: Inpatient Age: 42 Gender: Male Attending MD: Tha Wills MD, Procedure: ERCP Providers: Tha Wills MD Referring MD: Glenda Licea Indications: For therapy of bile duct stone(s) Medicines: Propofol per Anesthesia Complications: No immediate complications. Estimated Blood Loss: Estimated blood loss: none. Procedure: Pre-Anesthesia Assessment: - Prior to the procedure, a History and Physical was performed, and patient medications, allergies and sensitivities were reviewed. The patient's tolerance of previous anesthesia was reviewed. - The risks and benefits of the procedure and the sedation options and risks were discussed with the patient. All questions were answered and informed consent was obtained. - Patient identification and proposed procedure were verified prior to the procedure by the physician and the nurse. The procedure was verified in the procedure room. - Pre-procedure physical examination revealed no contraindications to sedation. After obtaining informed consent, the scope was passed under direct vision. Throughout the procedure, the patient's blood pressure, pulse, and oxygen saturations were monitored continuously. The Duodenoscope was introduced through the mouth, and advanced to the duodenum and used to inject contrast into the bile duct. The ERCP was accomplished without difficulty. The patient tolerated the procedure well. Findings: The director maternal child film was normal. The esophagus was successfully intubated under direct vision. The scope was advanced to a normal major papilla in the descending duodenum without detailed examination of the pharynx, larynx and associated structures, and upper GI tract. The upper GI tract was grossly normal. A 0.035 inch angled standard wire was passed into the biliary tree. The short-nosed traction sphincterotome was passed over the guidewire and the bile duct was then deeply cannulated. Contrast was injected. I personally interpreted the bile duct images. Ductal flow of contrast was adequate. Image quality was adequate. Contrast extended to the main bile duct. Opacification of the entire biliary tree except for the gallbladder was successful. The maximum diameter of the ducts was 12 mm. The lower third of the main bile duct contained one stone. Biliary sphincterotomy was made with a monofilament traction (standard) sphincterotome using ERBE electrocautery. The sphincterotomy oozed blood. Dilation of the common bile duct with an 8 mm balloon dilator was successful. The biliary tree was swept with a 12 mm balloon starting at the bifurcation. One stone was removed. No stones remained. One 10 mm by 4 cm covered metal biliary stent was placed into the common bile duct. Bile flowed through the stent. The stent was in good position. One 7 Fr by 7 cm plastic biliary stent with a single external pigtail and a single internal pigtail was placed into the common bile duct. Bile flowed through the stent. The stent was in good position. Indomethacin 100 mg was given via suppository to decrease the risk of post-ERCP pancreatitis (PEP). Impression: - Choledocholithiasis was found. Complete removal was accomplished by biliary sphincterotomy and balloon extraction. - One covered metal and one plastic biliary stents were placed into the common bile duct. Recommendation: - [facility]. - Repeat ERCP in 3 months to remove stent. - Surgery consult for cholecystectomy this admission if possible. Tha Wills MD 03/22/2023 1:16:15 PM This report has been signed electronically. Note Initiated On: 03/22/2023 12:05 PM Number of Addenda: 0 I attest to the content of the Intraoperative Record and orders documented therein, exceptions below {[id number]}
--- NOTE | 2023-03-22 13:58 | Fluoroscopy Report ---
[place] ERCP biliary ductal CLINICAL HISTORY: ERCP. Acute right upper quadrant abdominal pain COMPARISON STUDY: CT 03/21/2023 FLUOROSCOPY TIME: 29.7 seconds FLUOROSCOPY IMAGES: 12 EXPOSURE DOSE: 12.03 mGy FINDINGS: Endoscope within the duodenum. Retrograde cannulation of the common bile duct with injectio n of contrast and balloon sweep. Dilation of the common bile duct is noted. Subsequent images demonst rate placement of two common bile duct stents. IMPRESSION: Fluoroscopic assistance as above. ACT 112: Negative or not required by law. Electronically signed by: Juan Manuel Ortiz M.D. 03/22/2023 1:57 PM
--- NOTE | 2023-03-22 14:32 | Surgery Consultation ---
Date of Consultation March 22, 2023 Assessment & Plan (1) Dilated bile duct: (2) Hyperbilirubinemia: (3) Gallstone: Plan 42-year-old gentleman with choledocholithiasis with developing acute cholecystitis. He is status post ERCP with extraction of stone and stent placement. I had a long discussion with him concerning laparoscopic cholecystectomy. We discussed the risks, benefits, and outcomes as well as postoperative course. All his questions were answered, he is agreeable to proceed. We will schedule him for tomorrow for the OR. He will be n.p.o. past midnight tonight. We will check his labs early tomorrow morning prior to the surgery. History of Present Illness Reason for Consultation: Acute cholecystitis with choledocholithiasis Requesting Physician: Glenda Licea MD Attending Physician: Glenda Licea MD History of Present Illness 42-year-old gentleman presents with a 1 week history of right upper quadrant abdominal pain, nausea, vomiting. He noticed his skin turning yellow on Sunday. In the emergency department he was noted to have a total bilirubin of 8. He just underwent ERCP today with stone extraction and stent placement. He denies pain currently. He denies fevers or chills. Ultrasound demonstrated gallbladder with distention, stones and sludge. 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 Beliefs That Will Affect Care: None Current Living Situation: Family Current Living Situation Comment: Lives with girlfriend and 3 children Feels Safe at Home: Yes Safety Concerns: Feels Safe At This Time Assistive Devices: None Review of Systems Review of Systems: All systems reviewed & are unremarkable except as noted in HPI & below Physical Exam Constitutional: WD/WN, vitals as above Eyes: PERRL, conjunctivae normal, anicteric sclerae Neck: trachea midline, no thyromegaly Respiratory: normal respiratory effort; no respiratory distress and no labored breathing Cardiovascular: Rate/Rhythm: regular rhythm and + tachycardic Gastrointestinal (Abdomen): Inspection/Auscultation: abdomen normal to inspection; abdomen not distended Percussion/Palpation: abdomen soft; abdomen nontender, no guarding and abdomen not rigid Skin: no rashes, warm and dry Psychiatric: A+Ox3, euthymic affect Results & Data Vital Signs (Past 12 Hours) Vital Signs Temp Pulse Pulse Pulse Resp BP Pulse Ox 03/22/23 13:30 104 H 16 140/103 H 95 03/22/23 13:20 105 H 20 137/98 95 03/22/23 13:12 36.4 C L 115 H 18 135/92 95 03/22/23 11:12 37.2 C 121 H 20 146/109 H 97 03/22/23 08:10 37.0 C 95 H 16 145/96 H 96 03/22/23 07:42 74 03/22/23 03:29 36.9 C 84 20 119/87 95 O2 Del Method O2 Flow Rate 03/22/23 13:30 Oxymask 03/22/23 13:20 Oxymask 5 03/22/23 13:12 Oxymask 5 03/22/23 11:12 Room Air 03/22/23 08:10 Room Air 03/22/23 07:42 03/22/23 03:29 Room Air Laboratory Results 03/22/23 03/21/23 03/21/23 Range/Units 06:59 19:29 17:11 WBC 3.75 L (4.8-10.8) K/ul RBC 4.87 (4.70-6.10) M/uL Hgb 16.2 D (14.0-18.0) g/dl Hct 48.9 (42.0-52.0) % MCV 100.4 H (80.0-100.0) fL MCH 33.3 (25.0-34.0) pg MCHC 33.1 (32.0-36.0) g/dL RDW Std Deviation 49.5 H (36.4-46.3) fL RDW Coeff of [place] 13.2 (11.5-14.5) % Plt Count 161 (130-400) K/uL MPV 10.2 (9.4-12.4) fL Immature Gran % (Auto) % Neut % (Auto) % Lymph % (Auto) % [place] % (Auto) % Eos % (Auto) % Baso % (Auto) % Neut # (Auto) (1.40-6.50) K/uL Lymph # (Auto) (1.20-3.40) K/uL [place] # (Auto) (0.11-0.59) K/uL Eos # (Auto) (0.00-0.50) K/uL Baso # (Auto) (0.00-0.20) K/uL Immature Gran # (Auto) (0.01-0.20) K/uL Sodium 141 (136-145) mmol/L Potassium 3.7 (3.5-5.1) mmol/L Chloride 106 (98-107) mmol/L Carbon Dioxide 24 (21-32) mmol/L Anion Gap 11 (3-11) BUN 7 (6-23) mg/dl Creatinine 0.87 (0.6-1.4) mg/dl Est Cr Clr Drug Dosing 132.2 ml/min Est GFR ( Amer) 123.4 ml/min Est GFR (Non-Af Amer) 106.5 ml/min BUN/Creatinine Ratio 8.0 L (10-20) Glucose 85 (70-99(Fasting)) mg/dl Calcium 8.7 (8.6-10.3) mg/dl Total Bilirubin 5.4 H (0.2-1.0) mg/dl Direct Bilirubin (0-0.2) mg/dl AST 247 H (13-39) U/L ALT 309 H (7-52) U/L Alkaline Phosphatase 76 (34-104) U/L Troponin I High Sens (0-20) pg/ml Total Protein 5.6 L D (6.0-8.3) gm/dl Albumin 3.5 (3.4-5.0) gm/dl Globulin 2.1 L (2.5-4.0) gm/dl Albumin/Globulin Ratio 1.7 (0.9-2) Lipase 33 (11-82) U/L Urine Color Dark Yellow Urine Appearance Clear (Clear) Urine pH 5.5 (4.5-7.5) Ur Specific [place] > 1.045 H (1.000-1.030) Urine Protein Negative (Negative) Urine Glucose (UA) Negative (Negative) Urine Ketones 1+ H (Negative) Urine Blood Negative (Negative) Urine Nitrite Negative (Negative) Urine Bilirubin 1+ H (Negative) Urine Urobilinogen Positive H (Negative) Ur Leukocyte Esterase Negative (Negative) Ethyl Alcohol mg/dL < 10.0 (<10.0) mg/dl 03/21/23 Range/Units 14:30 WBC 5.17 (4.8-10.8) K/ul RBC 5.60 (4.70-6.10) M/uL Hgb 19.1 H (14.0-18.0) g/dl Hct 54.0 H (42.0-52.0) % MCV 96.4 (80.0-100.0) fL MCH 34.1 H (25.0-34.0) pg MCHC 35.4 (32.0-36.0) g/dL RDW Std Deviation 47.1 H (36.4-46.3) fL RDW Coeff of [place] 13.2 (11.5-14.5) % Plt Count 199 (130-400) K/uL MPV 10.3 (9.4-12.4) fL Immature Gran % (Auto) 0.4 % Neut % (Auto) 63.3 % Lymph % (Auto) 23.0 % [place] % (Auto) 10.8 % Eos % (Auto) 2.1 % Baso % (Auto) 0.4 % Neut # (Auto) 3.27 (1.40-6.50) K/uL Lymph # (Auto) 1.19 L (1.20-3.40) K/uL [place] # (Auto) 0.56 (0.11-0.59) K/uL Eos # (Auto) 0.11 (0.00-0.50) K/uL Baso # (Auto) 0.02 (0.00-0.20) K/uL Immature Gran # (Auto) 0.02 (0.01-0.20) K/uL Sodium 138 (136-145) mmol/L Potassium 3.6 (3.5-5.1) mmol/L Chloride 102 (98-107) mmol/L Carbon Dioxide 24 (21-32) mmol/L Anion Gap 12 H (3-11) BUN 6 (6-23) mg/dl Creatinine 0.93 (0.6-1.4) mg/dl Est Cr Clr Drug Dosing 123.7 ml/min Est GFR ( Amer) 116.9 ml/min Est GFR (Non-Af Amer) 100.9 ml/min BUN/Creatinine Ratio 6.5 L (10-20) Glucose 111 H (70-99(Fasting)) mg/dl Calcium 10.0 (8.6-10.3) mg/dl Total Bilirubin 8.0 H (0.2-1.0) mg/dl Direct Bilirubin 4.4 H (0-0.2) mg/dl AST 278 H (13-39) U/L ALT 347 H (7-52) U/L Alkaline Phosphatase 101 (34-104) U/L Troponin I High Sens 3.2 (0-20) pg/ml Total Protein 7.1 (6.0-8.3) gm/dl Albumin 4.4 (3.4-5.0) gm/dl Globulin 2.7 (2.5-4.0) gm/dl Albumin/Globulin Ratio 1.6 (0.9-2) Lipase 24 (11-82) U/L Urine Color Urine Appearance (Clear) Urine pH (4.5-7.5) Ur Specific [place] (1.000-1.030) Urine Protein (Negative) Urine Glucose (UA) (Negative) Urine Ketones (Negative) Urine Blood (Negative) Urine Nitrite (Negative) Urine Bilirubin (Negative) Urine Urobilinogen (Negative) Ur Leukocyte Esterase (Negative) Ethyl Alcohol mg/dL (<10.0) mg/dl Diagnostic Findings Exam(s): US GALLBLADDER EXAM: US Abdomen Limited, Gallbladder CLINICAL HISTORY: Reason for exam: gallstones. TECHNIQUE: Real-time ultrasound of the right upper quadrant with image documentation. COMPARISON: No relevant prior studies available. FINDINGS: Gallbladder: Sludge and stones within the gallbladder the gallbladder is distended. The sonographic Goncalves sign is not recorded, if high clinical suspicion for acute cholecystitis recommend nuclear medicine HIDA scan for further evaluation. Common bile duct: The CBD measures 10 cm. No intrahepatic ductal dilatation. No stones. Pancreas: Unremarkable as visualized. IMPRESSION: 1. Distended gallbladder with sludge and stones. The sonographic Goncalves sign is not recorded, if high clinical suspicion for acute cholecystitis recommend nuclear medicine HIDA scan for further evaluation. 2. The CBD measures 10 cm. No intrahepatic ductal dilatation. Electronically signed by: Deidre Arauz MD 03/21/23 21:00 PM (3) Gallstone Biliary obstruction: with biliary obstruction Cholecystitis presence: without cholecystitis Qualified Code(s): K80.21 - Calculus of gallbladder without cholecystitis with obstruction
--- NOTE | 2023-03-22 15:56 | Hospitalist Progress Note ---
Date of Service March 22, 2023 Assessment & Plan (1) Abdominal pain: Plan: Secondary to biliary colic/cholangitis due to Cholelithiasis and choledocholithiasis Patient is 42 year old male with PMH ETOH use, medical marijuana use for anxiety, presented to ER with c/o epigastric abdominal pain x 5 days, dark urine, yellow stools. Intermittent epigastric pain after eating fatty foods x 1 year. In ER afebrile, P: 111, BP: 133/95, R: 18, 96% on RA No leukocytosis, T Bili: 8, AST: 278, ALT: 347, Alk Phos: 101, Lipase: WNL CT abd/pelvis: There is mild intra and extrahepatic biliary ductal dilatation. No obstructing stone or lesion is clearly identified by CT. There are gallstones and biliary sludge with no CT evidence of acute cholecystitis. In ER given 1L NSS, Zosyn Currently denies abdominal pain Biliary Colic. Suspect possible passed gallstone or obstructing gallstone NPO midnight,IVF,Antiemetics, pain medications as needed. Appreciate GI input and recommendation Status post ERCP and to a stent placement in biliary tract and also endoscopic ultrasound today Endoscopy did show reflux esophagitis-PPI will be continued Received 1 dose of Zosyn during the procedure and will be continued as per recommendation from GI US gallbladder-showed distended gallbladder with sludge and stone. Acute cholecystitis was not excluded Appreciate surgery input and recommendation for endoscopic cholecystectomy tomorrow Patient remains stable following the procedure of ERCP and upper endoscopic ultrasound Will be n.p.o. after midnight for cholecystectomy tomorrow (2) Hyperbilirubinemia: Plan: Due to obstruction from choledocholithiasis (3) Elevated LFTs: Plan: Due to choledocholithiasis (4) Gallstone: (5) Sinus tachycardia: Plan: EK, sinus tachycardia per my interpretation IVF Monitor on telemetry (6) Alcohol use: Plan: Drinks 4-8 glasses wine daily. Reported last drink 5 days ago ETOH cessation recommended DVT Prophylaxis SCDs Full Code as per discussion with pt Does not follow with PCP for routine care Admission and Anticipated Discharge Date Admission Date: March 21, 2023 Subjective 03/22/2023 The patient was seen and examined in medical telemetry unit He is a status post ERCP for choledocholithiasis and cholelithiasis Has been feeling much better He will have cholecystectomy tomorrow Review of Systems Review of Systems: All systems reviewed and are unremarkable except as noted below Physical Exam Physical Exam: Lying in bed comfortably Constitutional: average body habitus; not ill appearing Eyes: PERRL, conjunctivae normal, anicteric sclerae ENMT: external ear and nose normal, oropharynx normal Neck: trachea midline, no thyromegaly Respiratory: no respiratory distress Auscultation: lungs clear to auscultation bilaterally Cardiovascular: Rate/Rhythm: regular rate, regular rhythm and + tachycardic Heart Sounds: normal S1 and normal S2; no murmur Extremities: no edema Gastrointestinal (Abdomen): Inspection/Auscultation: normal bowel sounds; abdomen not distended Percussion/Palpation: abdomen soft; abdomen nontender Musculoskeletal: No acute arthritis involving any joint Neurologic: normal touch/pain/proprioception and moves all extremities; no focal motor deficits Psychiatric: A+Ox3, euthymic affect Lymphatic: no cervical or axillary lymphadenopathy Results & Data Results & Data Vital Signs (Past 12 Hours) Vital Signs Temp Pulse Pulse Pulse Resp BP Pulse Ox 03/22/23 15:45 36.5 C 101 H 16 126/91 96 03/22/23 13:30 104 H 16 140/103 H 95 03/22/23 13:20 105 H 20 137/98 95 03/22/23 13:12 36.4 C L 115 H 18 135/92 95 03/22/23 11:12 37.2 C 121 H 20 146/109 H 97 03/22/23 08:10 37.0 C 95 H 16 145/96 H 96 03/22/23 07:42 74 O2 Del Method O2 Flow Rate 03/22/23 15:45 Room Air 03/22/23 13:30 Oxymask 03/22/23 13:20 Oxymask 5 03/22/23 13:12 Oxymask 5 03/22/23 11:12 Room Air 03/22/23 08:10 Room Air 03/22/23 07:42 Laboratory Results Short CBC 03/22/23 Range/Units 06:59 WBC 3.75 L (4.8-10.8) K/ul Hgb 16.2 D (14.0-18.0) g/dl Hct 48.9 (42.0-52.0) % Plt Count 161 (130-400) K/uL BMP 03/22/23 06:59 Sodium 141 Potassium 3.7 Chloride 106 Carbon Dioxide 24 BUN 7 Creatinine 0.87 Glucose 85 Calcium 8.7 Liver Function 03/21/23 03/22/23 Range/Units 14:30 06:59 Total Bilirubin 5.4 H (0.2-1.0) mg/dl Direct Bilirubin 4.4 H (0-0.2) mg/dl AST 247 H (13-39) U/L ALT 309 H (7-52) U/L Alkaline Phosphatase 76 (34-104) U/L Albumin 3.5 (3.4-5.0) gm/dl Urine 03/21/23 Range/Units 19:29 Urine Color Dark Yellow Urine Appearance Clear (Clear) Urine pH 5.5 (4.5-7.5) Ur Specific [place] > 1.045 H (1.000-1.030) Urine Protein Negative (Negative) Urine Glucose (UA) Negative (Negative) Medications Administered Current Inpatient Medications Atropine Sulfate (Atropine Sulfate 0.1 Mg/Ml 10ml Syr) 0.5 mg IV Q1M PRN PRN Reason: PACU Use-HR<40 &/or Bradycardi Stop: 03/22/23 19:47 Atropine Sulfate (Atropine Sulfate 0.1 Mg/Ml 10ml Syr) 0.5 mg IV Q1M PRN PRN Reason: PACU Use-HR<40 &/or Bradycardi Stop: 03/22/23 19:52 Ephedrine Sulfate (Ephedrine Sulfate 50 Mg/Ml Amp) 5 mg IV Q5M PRN PRN Reason: PACU Use Only-SBP<90 mmHg Stop: 03/22/23 19:47 Ephedrine Sulfate (Ephedrine Sulfate 50 Mg/Ml Amp) 5 mg IV Q5M PRN PRN Reason: PACU Use Only-SBP<90 mmHg Stop: 03/22/23 19:52 Fentanyl Citrate (Fentanyl Citrate Pf 100 Mcg/2 Ml Vial) 25 mcg IV Q5M PRN PRN Reason: PACU Use Only-Pain Stop: 03/22/23 19:47 Fentanyl Citrate (Fentanyl Citrate Pf 100 Mcg/2 Ml Vial) 25 mcg IV Q5M PRN PRN Reason: PACU Use Only-Pain Stop: 03/22/23 19:52 Hydromorphone HCl (Hydromorphone Inj 0.5 Mg/0.5 Ml Syr) 0.5 mg IV Q6H PRN PRN Reason: Mod-Sev Pain (Scale 4-10) Stop: 04/04/23 20:33 Sodium Chloride (Nss) 1,000 mls @ 100 mls/hr IV .Q10H NICHOLAS Stop: 03/22/23 16:33 Last Admin: 03/22/23 06:37 Dose: 100 mls/hr Acetaminophen (Ofirmev) 1,000 mg in 100 mls @ 400 mls/hr IV Q12H PRN PRN Reason: Pain or Fever Stop: 03/24/23 20:33 Last Infusion: 03/22/23 00:10 Dose: Infused Lactated Ringer's (Lr) 1,000 mls @ 15 mls/hr IV .Q24H ON LICENSE OF [facility] Stop: 04/21/23 11:29 Last Infusion: 03/22/23 12:11 Dose: Infused Ketorolac Tromethamine (Ketorolac Tromethamine 15 Mg/Ml Vial) 15 mg IV Q6H PRN PRN Reason: Mild Pain (Scale 1, 2, 3) Stop: 03/22/23 20:33 Ondansetron HCl (Ondansetron Inj 2 Mg/Ml 2 Ml Vial) 4 mg IV Q6H PRN PRN Reason: Nausea Stop: 04/20/23 20:33 Ondansetron HCl (Ondansetron Inj 2 Mg/Ml 2 Ml Vial) 4 mg IV ONCE PRN PRN Reason: PACU Use Only-Nausea/Vomiting Stop: 03/22/23 19:47 Ondansetron HCl (Ondansetron Inj 2 Mg/Ml 2 Ml Vial) 4 mg IV ONCE PRN PRN Reason: PACU Use Only-Nausea/Vomiting Stop: 03/22/23 19:52 Polyethylene Glycol (Polyethylene (Miralax) 17 Gm Pack) 17 gm PO DAILY PRN PRN Reason: Constipation Stop: 04/20/23 20:33 (1) Abdominal pain Abdominal location: upper abdomen, unspecified Qualified Code(s): R10.10 - Upper abdominal pain, unspecified (4) Gallstone Biliary obstruction: with biliary obstruction Cholecystitis presence: without cholecystitis Qualified Code(s): K80.21 - Calculus of gallbladder without cholecystitis with obstruction
[2023-03-22] MEDS ORDERED: PIPERACILLIN/TAZOBACTAM 4.5 GM in DEXTROSE 5% MINI-B 100 ML IV ONE (16:30)
[2023-03-22] MEDS ORDERED: ACETAMINOPHEN 325 MG TAB PO PRN (22:01)
[2023-03-22] MEDS: PIPERACILLIN/TAZOBACTAM 4.5 GM in DEXTROSE 5% MINI-B 100 ML IV SCH (22:22)
[2023-03-23] MEDS: HYDROmorphone INJ 0.5 MG/0.5 ML SYR IV PRN ×2 (01:29→17:35)
[2023-03-23] MEDS ORDERED: HYDROmorphone INJ 0.5 MG/0.5 ML SYR IV STA ×2 (03:39→22:08)
[2023-03-23] MEDS: PIPERACILLIN/TAZOBACTAM 4.5 GM in DEXTROSE 5% MINI-B 100 ML IV SCH ×3 (06:29→22:24)
[2023-03-23] MEDS ORDERED: PROPOFOL IV EMULSION 10 MG/ML 20 ML VIAL IV ONE (06:58)
[2023-03-23] MEDS ORDERED: DEXAMETHASONE SOD INJ 4 MG/ML VIAL ONE (06:58)
[2023-03-23] MEDS ORDERED: ONDANSETRON INJ 2 MG/ML 2 ML VIAL ONE (06:58)
[2023-03-23] MEDS ORDERED: LIDOCAINE 2% 2 ML VIAL/AMP(20MG/ML) INFIL ONE (06:58)
[2023-03-23] MEDS ORDERED: MIDAZOLAM HCL 1 MG/ML 2ML VIAL ONE (06:59)
[2023-03-23] MEDS ORDERED: fentaNYL citrate PF 100 MCG/2 ML VIAL ONE (06:59)
--- NOTE | 2023-03-23 07:05 | Surgery Progress Note ---
Date of Service March 23, 2023 Assessment & Plan (1) Gallstone: Plan 43-year-old gentleman with choledocholithiasis and acute cholecystitis status post ERCP with stone extraction and stent placement. I discussed the risks and benefits of a laparoscopic cholecystectomy with him. All his questions were answered, he is agreeable to proceed. Consent has been obtained. We will take him to the operating room at the earliest convenience. Admission and Anticipated Discharge Date Admission Date: March 21, 2023 Subjective POD #1 status post ERCP with stent placement and stone extraction. He began having some right upper quadrant abdominal pain this morning. No nausea or vomiting. Physical Exam Physical Exam: AFVSS NAD, A&O x 3 CTA B/L RRR Abdomen: Soft, mild TTP RUQ Results & Data Vital Signs (Past 12 Hours) Vital Signs Temp Pulse Pulse Resp BP Pulse Ox O2 Del Method 03/23/23 03:08 36.8 C 72 20 155/100 H 96 Room Air 03/22/23 23:35 37.1 C 88 20 135/98 97 Room Air 03/22/23 22:34 79 03/22/23 20:08 37.3 C 82 20 127/89 96 Room Air (1) Gallstone Biliary obstruction: with biliary obstruction Cholecystitis presence: without cholecystitis Qualified Code(s): K80.21 - Calculus of gallbladder without cholecystitis with obstruction
--- NOTE | 2023-03-23 07:22 | Anesthesiology Consultation ---
Date of Service March 23, 2023 Assessment & Plan Chart Review Chart Review: Acceptable Risk for Surgery and Patient NOT seen in Pre Admission Testing Consults Requested none ASA ASA3 Proposed Anesthesia Anesthesia Type: General Risk / Benefits Reviewed With: PT / POA / Parent / Guardian, Accepts Plan and Informed Consent Obtained History Surgery Operation Date: 03/22/23 13:15 Proposed Procedures p Endoscopic Retrograde Cholangiopancreato - Tha Wills MD Operation Date: 03/23/23 07:15 Proposed Procedures p Laparoscopic Cholecystectomy - Gerhard Johnson MD Height/Weight Height: 6 ft 3 in Weight: 97.7 kg Allergies Allergy/AdvReac Type Severity Reaction Status Date / Time No Known Allergies Allergy Unknown Verified 03/17/08 18:22 Medications Active Medications Generic Name Dose Route Start Last Admin Trade Name Freq PRN Reason Stop Dose Admin Acetaminophen 650 mg 03/22/23 22:01 03/22/23 22:57 Acetaminophen 325 Mg Tab PO 04/21/23 22:00 650 mg Q6H PRN Administration Pain or Fever Hydromorphone HCl 0.5 mg 03/21/23 20:34 03/23/23 01:29 Hydromorphone Inj 0.5 Mg/0.5 Ml Syr IV 04/04/23 20:33 0.5 mg Q6H PRN Administration Mod-Sev Pain (Scale 4-10) Acetaminophen 1,000 mg in 100 mls @ 400 mls/hr 03/21/23 20:34 03/22/23 00:10 Ofirmev IV 03/24/23 20:33 Infused Q12H PRN Infusion Pain or Fever Lactated Ringer's 1,000 mls @ 15 mls/hr 03/22/23 11:30 03/22/23 12:11 Lr IV 04/21/23 11:29 Infused .Q24H NICHOLAS Infusion Piperacillin Sod/Tazobactam 100 mls @ 25 mls/hr 03/22/23 22:00 03/23/23 07:05 Sod 4.5 gm/ Dextrose IV 03/26/23 21:59 0 mls/hr Q8H NICHOLAS Infusion Protocol NPO Date Last Intake of Fluids: 03/22/23 Time Last Intake of Fluids: 23:30 Date Last Intake of Solids: 03/22/23 Time Last Intake of Solids: 19:00 Past Medical History Medical History Alcohol use Fx metatarsal-closed Infectious mononucleosis Exercise / Class Metabolic Activity II 4-5 Yardwork/Stairs/Walk up hill Past Family History Family History Father FH: cirrhosis Past Surgical History Surgical History H/O foot surgery Past Anesthesia History No Hx of Anesthesia Complications and No Family Hx of Anesthesia Complications History of PONV No Hx of PONV and No Hx of Motion Sickness Social History Smoking Status: Never smoker Hx Alcohol Use: Yes Alcohol type: wine alcohol intake frequency: 3 or more drinks per day Alcohol Intake Frequency Comment: States drinks 3-8 glasses of wine - 5 days a week. Last drink a week ago Hx Substance Use: Yes substance use type: marijuana Last Used Substance Other:: Medical marijuana Review of Systems ROS Unobtainable: All systems reviewed & are unremarkable except as noted in HPI & below Physical Exam Vital Signs Last Vital Signs Temp 36.8 C 03/23/23 07:12 Pulse 95 H 03/23/23 07:12 Resp 18 03/23/23 07:12 BP 166/114 H 03/23/23 07:12 Pulse Ox 97 03/23/23 07:12 O2 Del Method Room Air 03/23/23 07:12 O2 Flow Rate 5 03/22/23 13:20 ENMT Mouth: no TMJ abnormality Thyromental Distance: > or= 3.5 Finger Breadths Mallampati Class: II Mouth / Teeth: 2 1. Chipped - from intubation yesterday Neck normal visual inspection and trachea midline; neck extension not limited Respiratory normal respiratory effort Auscultation: lungs clear to auscultation bilaterally Cardiovascular Rate/Rhythm: regular rate and regular rhythm Heart Sounds: no murmur Musculoskeletal Spine: normal cervical ROM Extremities: full ROM of extremities Neurologic moves all extremities Psychiatric Orientation: alert and oriented x 3 Testing Laboratory Results 03/22/23 06:59 03/22/23 06:59 Urine Color Dark Yellow 03/21/23 19:29 Urine Appearance Clear (Clear) 03/21/23 19:29 Urine pH 5.5 (4.5-7.5) 03/21/23 19:29 Ur Specific [place] > 1.045 (1.000-1.030) H 03/21/23 19:29 Urine Protein Negative (Negative) 03/21/23 19:29 Urine Glucose (UA) Negative (Negative) 03/21/23 19:29 Urine Ketones 1+ (Negative) H 03/21/23 19:29 Urine Nitrite Negative (Negative) 03/21/23 19:29 Ur Leukocyte Esterase Negative (Negative) 03/21/23 19:29 03/23/23 07:08 POC Glucose 91 Electrocardiogram Date: 03/22/23 Findings: + NSR @
[2023-03-23] MEDS ORDERED: ePHEDrine sulfate 50 MG/ML AMP IV PRN (07:28)
[2023-03-23] MEDS ORDERED: fentaNYL citrate PF 100 MCG/2 ML VIAL IV PRN (07:28)
[2023-03-23] MEDS ORDERED: HYDROmorphone INJ 1 MG/ML SYRINGE IV PRN (07:28)
[2023-03-23] MEDS ORDERED: ATROPINE SULFATE 0.1 MG/ML 10ML SYR IV PRN (07:28)
[2023-03-23] MEDS ORDERED: ONDANSETRON INJ 2 MG/ML 2 ML VIAL IV PRN (07:28)
[2023-03-23] MEDS ORDERED: BUPIVACAINE/EPINEPHRINE 0.5% MPF 1:200,000 30 ML VIAL ONE (07:29)
[2023-03-23 07:34] LABS: Basophils # (auto) 0.02 K/uL (0.00-0.20); Basophils % (auto) 0.3 %; Eosinophils # (auto) 0.08 K/uL (0.00-0.50); Eosinophils % (auto) 1.4 %; Hematocrit (blood only) 48.3 % (42.0-52.0); Hemoglobin 15.7 g/dl (14.0-18.0); Immature Granulocytes # (auto) 0.01 K/uL (0.01-0.20); Immature Granulocytes % (auto) 0.2 %; Lymphocytes # (auto) 0.78 K/uL (1.20-3.40); Lymphocytes % (auto) 13.4 %; Mean Corpuscular Hgb Conc 32.5 g/dL (32.0-36.0); Mean Corpuscular Volume 101.5 fL (80.0-100.0); Mean Platelet Volume 10.3 fL (9.4-12.4); Monocytes # (auto) 0.49 K/uL (0.11-0.59); Monocytes % (auto) 8.4 %; Neutrophils # (auto) 4.43 K/uL (1.40-6.50); Neutrophils % (auto) 76.3 %; Platelet Count 155 K/uL (130-400); RDW Coefficient of Variation 13.1 % (11.5-14.5); RDW Standard Deviation 48.7 fL (36.4-46.3); Red Blood Count 4.76 M/uL (4.70-6.10); White Blood Count 5.81 K/ul (4.8-10.8)
[2023-03-23] MEDS ORDERED: HYDROmorphone INJ 2 MG/ML SYR/VIAL ONE (07:48)
[2023-03-23 08:00] LABS: Albumin Level 3.7 gm/dl (3.4-5.0); BUN Creatinine Ratio 10.4 (10-20); Bilirubin Direct 1.4 mg/dl (0-0.2); Bilirubin,Total 3.1 mg/dl (0.2-1.0); Calcium 8.6 mg/dl (8.6-10.3); Creatinine Clr Calc Pharmacy 149.4 ml/min; Est GFR (African American) 129.7 ml/min; Est GFR (Non-African American) 111.9 ml/min; Potassium 3.8 mmol/L (3.5-5.1); Total Protein 5.7 gm/dl (6.0-8.3)
[2023-03-23] MEDS ORDERED: SUGAMMADEX SODIUM 200 MG/2 ML VIAL IV ONE (08:03)
--- NOTE | 2023-03-23 08:34 | Operative Report ---
Post Operative Report Pre & Post Diagnosis Operation Date: 03/23/23 07:15 Pre-Op Diagnosis: Gallstones Post-Op Diagnosis: Gallstones I identified the patient and participated in the time-out.: Yes Procedure Operation Date: 03/23/23 07:15 Actual Procedures p Laparoscopic Cholecystectomy(Not Applicable) - Gerhard Johnson MD Surgeon Gerhard Johnson MD Snow Maker None Estimated Blood Loss 5 Findings Consistent with Post-Op Diagnosis Acute cholecystitis Specimens Gallbladder Drains None Anesthesia Type General Complications None Description of Procedure The patient was taken to the operating room, and placed supine on the operating table. A timeout was performed, perioperative antibiotics were administered, SCD boots were placed. After adequate anesthesia and analgesia was obtained, the abdomen was prepped and draped in the normal sterile fashion. Local anesthetic was injected into and around the proposed incision sites. An incision was made with a 15 blade scalpel in the supraumbilical region and carried down to the level of the fascia. The fascia was grasped with a trach hook, and a varies needle was used to enter the abdominal cavity. The abdomen was insufflated to a pressure of 15 mmHg, and a 11 mm trocar was placed in this location. A 10 mm, 30 degree laparoscope was placed into the abdominal cavity, and the abdomen was surveyed. The gallbladder was quite taut and distended and full of stones. Two 5 mm trochars were placed along the right costal margin, and one 5 mm trocar was placed in the subxiphoid region under direct visualization. The gallbladder was grasped and retracted cephalad and laterally, exposing the triangle of Calot. Dissection began in the triangle with a combination of blunt dissection with the [place] dissector, and judicious use of the hook cautery. The cystic duct and cystic artery were dissected free circumferentially, and a critical view of safety was obtained. The cystic duct and cystic artery were clipped and transected, and the gallbladder was removed from the gallbladder fossa with the hook cautery. The camera was switched to a 5 mm, the gallbladder was placed in an Endo Catch bag, and removed via the supraumbilical port site. The camera was switched back to the 10 mm camera, and the abdomen was surveyed again. Hemostasis was checked and attended, and was excellent. The abdomen was copiously irrigated and suctioned free. Again hemostasis was checked and was excellent. All trochars were removed under direct visualization. The abdomen was desufflated. The fascia in the 11 mm port site was closed with a 0 Vicryl suture. The skin was closed with a running 4-0 Monocryl subcuticular stitch. Dermabond was applied. The patient tolerated the procedure without complicat ion, and was transferred in stable condition to the PACU. All instrument, needle, and sponge counts were correct at the end of the case. I attest to the content of the Intraoperative Record and any orders documented therein. Any exceptions are noted below.
[2023-03-23] MEDS ORDERED: LABETALOL HCL IV 5 MG/ML 20ML IV ONE (09:04)
[2023-03-23] MEDS ORDERED: LABETALOL HCL IV 5 MG/ML 20ML IV STA (09:05)
[2023-03-23] MEDS ORDERED: diphenhydrAMINE Capsule 25 MG CAP PO PRN (09:49)
--- NOTE | 2023-03-23 13:22 | Anesthesiology Progress Note ---
Date of Service March 23, 2023 Anesthesia Post Procedure Vital Signs Vital Signs: Temp Pulse Pulse Resp BP BP BP 03/23/23 12:19 36.5 C 91 H 18 149/102 H 03/23/23 11:15 36.3 C L 76 148/103 H 03/23/23 11:14 36.3 C L 76 16 148/103 H 03/23/23 10:30 36.3 C L 81 18 149/108 H 03/23/23 09:57 36.6 C 92 H 16 151/108 H 03/23/23 09:30 78 16 151/106 H 03/23/23 09:20 36.4 C L 84 12 161/106 H 03/23/23 09:10 85 16 157/109 H 03/23/23 09:07 92 H 168/119 H 03/23/23 09:00 89 16 168/116 H 03/23/23 08:50 95 H 18 155/116 H 03/23/23 08:40 36.5 C 95 H 17 169/119 H 03/23/23 07:12 36.8 C 95 H 18 166/114 H 03/23/23 03:08 36.8 C 72 20 155/100 H 03/22/23 23:35 37.1 C 88 20 135/98 03/22/23 22:34 79 03/22/23 20:08 37.3 C 82 20 127/89 03/22/23 15:45 36.5 C 101 H 16 126/91 03/22/23 13:30 104 H 16 140/103 H Pulse Ox O2 Del Method O2 Flow Rate 03/23/23 12:19 95 Nasal Cannula 2 03/23/23 11:15 95 Nasal Cannula 2 03/23/23 11:14 95 Nasal Cannula 2 03/23/23 10:30 92 Nasal Cannula 2 03/23/23 09:57 96 Nasal Cannula 2 03/23/23 09:30 95 Nasal Cannula 2 03/23/23 09:20 97 Nasal Cannula 2 03/23/23 09:10 94 Nasal Cannula 2 03/23/23 09:07 03/23/23 09:00 94 Nasal Cannula 2 03/23/23 08:50 99 Oxymask 7 03/23/23 08:40 99 Oxymask 7 03/23/23 07:12 97 Room Air 03/23/23 03:08 96 Room Air 03/22/23 23:35 97 Room Air 03/22/23 22:34 03/22/23 20:08 96 Room Air 03/22/23 15:45 96 Room Air 03/22/23 13:30 95 Oxymask Pain Intensity Right Upper Abdomen: Pain Intensity: 7 Right Shoulder: Pain Intensity: 2 Transfer of Care Handoff Completed per policy Notes Mental Status: alert / awake / arousable and participated in evaluation Patient Amnestic to Procedure: Yes Nausea / Vomiting: adequately controlled Pain: adequately controlled Airway Patency, RR, SpO2: stable & adequate BP & HR: stable & adequate Hydration State: stable & adequate Anesthetic Complications: no major complications apparent and Pt Satisfied with anesthetic care
[2023-03-23] MEDS: LACTATED RINGER'S 1,000 ML IV SCH (13:58)
--- NOTE | 2023-03-23 15:57 | Gastroenterology Progress Note ---
Date of Service March 23, 2023 Assessment & Plan (1) Choledocholithiasis with cholecystitis: Plan: post ERCP w stone extraction and post lap choley Plan Needs OP ERCP for stent removal in 2-3m Diet per surgery, no GI contraindication to advancing diet. GI will sign off. Admission and Anticipated Discharge Date Admission Date: March 21, 2023 Supervising Physician Co-Signing Physician Notes I performed a history and physical examination of the patient today, including specifically on physical exam - soft abdomen. I have discussed the patient's management with the advanced practitioner. Please refer to the nurse practitioner's note for the documented findings and plan of care. Subjective 42, male, admitted w RUQ pain, el LFTs, dilated bile duct. ERCP w sphincterotomy and stone extraction on 03/22. LFTs improved today. Lap choley today Seen this afternoon after surgery. Denies significant pain - just a little uncomfortable. Review of Systems 2 Review of Systems: ROS: Gen: subjective fever, No weakness or weight loss Eyes: + icterus, no eye pain or vision changes Resp: No SOB, no cough Cardio: No palpitations/irregular beats, no chest pain GI: As per HPI otherwise (-) : Denies pain on urination Skin: + jaundice/itching. No rashes or lesions. Physical Exam 2 Constitutional: WD/WN, vitals as above ENMT: external ear and nose normal, oropharynx normal Neck: trachea midline, no thyromegaly Respiratory: normal respiratory effort, lungs clear to auscultation Cardiovascular: RRR, no murmur, no edema Gastrointestinal (Abdomen): mildly distended, hypoactive BS, surgical dressings dry, intact. Able to ambulate in the room. Musculoskeletal: no cyanosis or clubbing, extremities motor strength 5/5 Neurologic: PERRL, EOMI, accommodation nl, no face palsy, no dysarthria Psychiatric: A+Ox3, euthymic affect Lymphatic: no cervical or axillary lymphadenopathy Results & Data Vital Signs (Past 12 Hours) Vital Signs Temp Pulse Pulse Resp BP BP Pulse Ox 03/23/23 12:19 36.5 C 91 H 18 149/102 H 95 03/23/23 11:15 36.3 C L 76 148/103 H 95 03/23/23 11:14 36.3 C L 76 16 148/103 H 95 03/23/23 10:30 36.3 C L 81 18 149/108 H 92 03/23/23 09:57 36.6 C 92 H 16 151/108 H 96 03/23/23 09:30 78 16 151/106 H 95 03/23/23 09:20 36.4 C L 84 12 161/106 H 97 03/23/23 09:10 85 16 157/109 H 94 03/23/23 09:07 92 H 168/119 H 03/23/23 09:00 89 16 168/116 H 94 03/23/23 08:50 95 H 18 155/116 H 99 03/23/23 08:40 36.5 C 95 H 17 169/119 H 99 03/23/23 07:12 36.8 C 95 H 18 166/114 H 97 O2 Del Method O2 Flow Rate 03/23/23 12:19 Nasal Cannula 2 03/23/23 11:15 Nasal Cannula 2 03/23/23 11:14 Nasal Cannula 2 03/23/23 10:30 Nasal Cannula 2 03/23/23 09:57 Nasal Cannula 2 03/23/23 09:30 Nasal Cannula 2 03/23/23 09:20 Nasal Cannula 2 03/23/23 09:10 Nasal Cannula 2 03/23/23 09:07 03/23/23 09:00 Nasal Cannula 2 03/23/23 08:50 Oxymask 7 03/23/23 08:40 Oxymask 7 03/23/23 07:12 Room Air Laboratory Results T Bili 3, ST 166, ALT 288 03/23/23 06:42 03/23/23 06:42
--- NOTE | 2023-03-23 16:35 | Hospitalist Progress Note ---
Date of Service March 23, 2023 Assessment & Plan (1) Abdominal pain: Plan: Secondary to biliary colic/cholangitis due to Cholelithiasis and choledocholithiasis Patient is 42 year old male with PMH ETOH use, medical marijuana use for anxiety, presented to ER with c/o epigastric abdominal pain x 5 days, dark urine, yellow stools. Intermittent epigastric pain after eating fatty foods x 1 year. In ER afebrile, P: 111, BP: 133/95, R: 18, 96% on RA No leukocytosis, T Bili: 8, AST: 278, ALT: 347, Alk Phos: 101, Lipase: WNL CT abd/pelvis: There is mild intra and extrahepatic biliary ductal dilatation. No obstructing stone or lesion is clearly identified by CT. There are gallstones and biliary sludge with no CT evidence of acute cholecystitis. In ER given 1L NSS, Zosyn Currently denies abdominal pain Biliary Colic. Suspect possible passed gallstone or obstructing gallstone NPO midnight,IVF,Antiemetics, pain medications as needed. Appreciate GI input and recommendation Status post ERCP and to a stent placement in biliary tract and also endoscopic ultrasound today Endoscopy did show reflux esophagitis-PPI will be continued Received 1 dose of Zosyn during the procedure and will be continued as per recommendation from GI US gallbladder-showed distended gallbladder with sludge and stone. Acute cholecystitis was not excluded Appreciate surgery input and recommendation for endoscopic cholecystectomy tomorrow Patient remains stable following the procedure of ERCP and upper endoscopic ultrasound Will be n.p.o. after midnight for cholecystectomy tomorrow Status post laparoscopic cholecystectomy Remains stable without any significant symptoms Likely discharge tomorrow (2) Hyperbilirubinemia: Plan: Due to obstruction from choledocholithiasis (3) Elevated LFTs: Plan: Due to choledocholithiasis LFTs are improving and will recheck tomorrow (4) Gallstone: (5) Sinus tachycardia: Plan: EK, sinus tachycardia per my interpretation IVF Monitor on telemetry (6) Alcohol use: Plan: Drinks 4-8 glasses wine daily. Reported last drink 5 days ago ETOH cessation recommended DVT Prophylaxis SCDs Full Code as per discussion with pt Does not follow with PCP for routine care Admission and Anticipated Discharge Date Admission Date: March 21, 2023 Subjective 03/22/2023 The patient was seen and examined in medical telemetry unit He is a status post ERCP for choledocholithiasis and cholelithiasis Has been feeling much better He will have cholecystectomy tomorrow 03/23/2023 The patient was seen and examined in medical telemetry unit He is a status post laparoscopic cholecystectomy Denies any significant symptoms except minimal pain at the laparoscopic site No fever and no chills Started on a clear liquid diet Review of Systems Review of Systems: All systems reviewed and are unremarkable except as noted below Physical Exam Physical Exam: Lying in bed comfortably Constitutional: average body habitus; not ill appearing Eyes: PERRL, conjunctivae normal, anicteric sclerae ENMT: external ear and nose normal, oropharynx normal Neck: trachea midline, no thyromegaly Respiratory: no respiratory distress Auscultation: lungs clear to auscultation bilaterally Cardiovascular: Rate/Rhythm: regular rate, regular rhythm and + tachycardic Heart Sounds: normal S1 and normal S2; no murmur Extremities: no edema Gastrointestinal (Abdomen): Inspection/Auscultation: normal bowel sounds; abdomen not distended Percussion/Palpation: abdomen soft; abdomen nontender Neurologic: normal touch/pain/proprioception and moves all extremities; no focal motor deficits Psychiatric: A+Ox3, euthymic affect Lymphatic: no cervical or axillary lymphadenopathy Results & Data Results & Data Vital Signs (Past 12 Hours) Vital Signs Temp Pulse Pulse Resp BP BP Pulse Ox 03/23/23 16:22 36.9 C 78 16 159/110 H 97 03/23/23 16:21 99 H 03/23/23 12:19 36.5 C 91 H 18 149/102 H 95 03/23/23 11:15 36.3 C L 76 148/103 H 95 03/23/23 11:14 36.3 C L 76 16 148/103 H 95 03/23/23 10:30 36.3 C L 81 18 149/108 H 92 03/23/23 09:57 36.6 C 92 H 16 151/108 H 96 03/23/23 09:30 78 16 151/106 H 95 03/23/23 09:20 36.4 C L 84 12 161/106 H 97 03/23/23 09:10 85 16 157/109 H 94 03/23/23 09:07 92 H 168/119 H 03/23/23 09:00 89 16 168/116 H 94 03/23/23 08:50 95 H 18 155/116 H 99 03/23/23 08:40 36.5 C 95 H 17 169/119 H 99 03/23/23 07:12 36.8 C 95 H 18 166/114 H 97 O2 Del Method O2 Flow Rate 03/23/23 16:22 Nasal Cannula 2 03/23/23 16:21 03/23/23 12:19 Nasal Cannula 2 03/23/23 11:15 Nasal Cannula 2 03/23/23 11:14 Nasal Cannula 2 03/23/23 10:30 Nasal Cannula 2 03/23/23 09:57 Nasal Cannula 2 03/23/23 09:30 Nasal Cannula 2 03/23/23 09:20 Nasal Cannula 2 03/23/23 09:10 Nasal Cannula 2 03/23/23 09:07 03/23/23 09:00 Nasal Cannula 2 03/23/23 08:50 Oxymask 7 03/23/23 08:40 Oxymask 7 03/23/23 07:12 Room Air Laboratory Results Short CBC 03/23/23 Range/Units 06:42 WBC 5.81 (4.8-10.8) K/ul Hgb 15.7 (14.0-18.0) g/dl Hct 48.3 (42.0-52.0) % Plt Count 155 (130-400) K/uL BMP 03/23/23 06:42 Sodium 138 Potassium 3.8 Chloride 104 Carbon Dioxide 27 BUN 8 Creatinine 0.77 Glucose 101 H Calcium 8.6 Liver Function 03/23/23 Range/Units 06:42 Total Bilirubin 3.1 H (0.2-1.0) mg/dl Direct Bilirubin 1.4 H (0-0.2) mg/dl AST 166 H (13-39) U/L ALT 288 H (7-52) U/L Alkaline Phosphatase 68 (34-104) U/L Albumin 3.7 (3.4-5.0) gm/dl Medications Administered Current Inpatient Medications Acetaminophen (Acetaminophen 325 Mg Tab) 650 mg PO Q6H PRN PRN Reason: Pain or Fever Stop: 04/21/23 22:00 Last Admin: 03/22/23 22:57 Dose: 650 mg Diphenhydramine HCl (Diphenhydramine Capsule 25 Mg Cap) 25 mg PO Q4H PRN PRN Reason: hives, itching or insomnia Stop: 04/22/23 09:48 Hydromorphone HCl (Hydromorphone Inj 0.5 Mg/0.5 Ml Syr) 0.5 mg IV Q6H PRN PRN Reason: Mod-Sev Pain (Scale 4-10) Stop: 04/04/23 20:33 Last Admin: 03/23/23 01:29 Dose: 0.5 mg Acetaminophen (Ofirmev) 1,000 mg in 100 mls @ 400 mls/hr IV Q12H PRN PRN Reason: Pain or Fever Stop: 03/24/23 20:33 Last Infusion: 03/22/23 00:10 Dose: Infused Lactated Ringer's (Lr) 1,000 mls @ 15 mls/hr IV .Q24H NICHOLAS Stop: 04/21/23 11:29 Last Admin: 03/23/23 13:58 Dose: Not Given Piperacillin Sod/Tazobactam (Sod 4.5 gm/ Dextrose) 100 mls @ 25 mls/hr IV Q8H NICHOLAS; Protocol Stop: 03/26/23 21:59 Last Admin: 03/23/23 13:57 Dose: 25 mls/hr Ondansetron HCl (Ondansetron Inj 2 Mg/Ml 2 Ml Vial) 4 mg IV Q6H PRN PRN Reason: Nausea Stop: 04/20/23 20:33 Oxycodone/Acetaminophen (Oxycodone/Acetaminophen 5mg/325mg Tab) 1 tab PO Q4H PRN PRN Reason: MODERATE Pain (4,5,6) & Pre PT Stop: 04/06/23 09:48 Polyethylene Glycol (Polyethylene (Miralax) 17 Gm Pack) 17 gm PO DAILY PRN PRN Reason: Constipation Stop: 04/20/23 20:33 (1) Abdominal pain Abdominal location: upper abdomen, unspecified Qualified Code(s): R10.10 - Upper abdominal pain, unspecified (4) Gallstone Biliary obstruction: with biliary obstruction Cholecystitis presence: without cholecystitis Qualified Code(s): K80.21 - Calculus of gallbladder without cholecystitis with obstruction
--- NOTE | 2023-03-23 19:04 | Electrocardiogram Report ---
Test Reason : Blood Pressure : / mmHG Vent. Rate : 108 BPM Atrial Rate : 108 BPM P-R Int : 192 ms QRS Dur : 086 ms QT Int : 330 ms P-R-T Axes : 034 -23 025 degrees QTc Int : 442 ms Sinus tachycardia Biatrial enlargement Possible Anterior infarct , age undetermined Abnormal ECG No previous ECGs available Confirmed by Shashi Meredith ([id number]) on 03/23/2023 7:04:06 PM Referred By: Confirmed By:Shashi Meredith
--- NOTE | 2023-03-23 19:05 | Electrocardiogram Report ---
Test Reason : Blood Pressure : / mmHG Vent. Rate : 086 BPM Atrial Rate : 086 BPM P-R Int : 194 ms QRS Dur : 092 ms QT Int : 400 ms P-R-T Axes : 025 087 053 degrees QTc Int : 478 ms Normal sinus rhythm Possible Left atrial enlargement Nonspecific T wave abnormality When compared with ECG of 21-MAR-2023 14:27, Borderline criteria for Anterior infarct are no longer Present Confirmed by Shashi Meredith ([id number]) on 03/23/2023 7:04:33 PM Referred By: REFERRED SELF Confirmed By:Shashi Meredith
[2023-03-23] MEDS: oxyCODONE/ACETAMINOPHEN 5mg/325mg TAB PO PRN (19:45)
[2023-03-24] MEDS: HYDROmorphone INJ 0.5 MG/0.5 ML SYR IV PRN ×2 (01:28→16:17)
[2023-03-24] MEDS: oxyCODONE/ACETAMINOPHEN 5mg/325mg TAB PO PRN ×2 (04:26→09:25)
--- NOTE | 2023-03-24 05:23 | Surgery Progress Note ---
Date of Service March 24, 2023 Assessment & Plan (1) Choledocholithiasis with cholecystitis: Plan: Status post ERCP on 03/22/2023 (postoperative day #2); status post laparoscopic cholecystectomy on 03/23/2023 (postop day #1) Continue analgesics as needed Continue antiemetics as needed Maintain patient on clear liquids for the present time; consideration be given to further advancing diet once bowel function has improved and abdominal distention has improved Continue antibiotics in the form of Zosyn Increase ambulation as able Plans noted for repeat ERCP in several weeks for stent removal Check a.m. labs when available If patient remains hospitalized consideration should be given to adding DVT prophylaxis Admission and Anticipated Discharge Date Admission Date: March 21, 2023 Supervising Physician Co-Signing Physician Notes I personally saw and evaluated the patient with Umair Chavarria PA-C and agree with the assessment and plan 42-year-old male postoperative day 1 laparoscopic cholecystectomy He is doing well and tolerating clear liquids, can advance as tolerated As he is ambulating without issue and tolerating a diet he can be discharged from a surgical standpoint later today Surgery will sign off at this time, please call with any questions or concerns Dr. Johnson's office will reach out to him once he is discharged for follow-up around 2 weeks from surgery Subjective Patient is currently resting comfortably in bed. Since his surgery he has thus far tolerated clears without nausea or vomiting. Oral consumption of clear liquids does not appear to exacerbate abdominal pain but he does report some incisional pain and abdominal bloating and does not feel as though he would like more to eat at this time. He denies having a bowel movement or passing flatus since surgery. He denies any fevers, shakes, or chills Physical Exam Gastrointestinal (Abdomen): Bowel sounds are hypoactive. Patient's abdomen is mildly distended. Patient does have appropriate tenderness near surgical incisions. Incisions do appear clean, dry, and intact. Results & Data Vital Signs (Past 12 Hours) Vital Signs Temp Pulse Pulse Resp BP BP Pulse Ox 03/24/23 04:05 36.6 C 113 H 18 143/105 H 92 03/24/23 00:05 36.5 C 104 H 18 141/104 H 94 03/23/23 21:58 106 H 03/23/23 19:47 36.7 C 107 H 18 158/106 H 93 O2 Del Method 03/24/23 04:05 Room Air 03/24/23 00:05 Room Air 03/23/23 21:58 03/23/23 19:47 Room Air PG Care Time/CCT Total # of Minutes Spent Total Time Spent with Patient: Total time spent is greater than 50% in coordination of care (as documented) at patient's floor/unit and/or counseling patient: Coding Level of Care Code 69430 Post Operative Follow-Up Diagnoses Choledocholithiasis with cholecystitis K80.40
[2023-03-24] MEDS: PIPERACILLIN/TAZOBACTAM 4.5 GM in DEXTROSE 5% MINI-B 100 ML IV SCH ×2 (06:32→17:14)
[2023-03-24 10:34] LABS: Basophils # (auto) 0.02 K/uL (0.00-0.20); Basophils % (auto) 0.1 %; Eosinophils # (auto) 0.02 K/uL (0.00-0.50); Eosinophils % (auto) 0.1 %; Hematocrit (blood only) 51.4 % (42.0-52.0); Hemoglobin 17.4 g/dl (14.0-18.0); Immature Granulocytes # (auto) 0.08 K/uL (0.01-0.20); Immature Granulocytes % (auto) 0.6 %; Lymphocytes # (auto) 0.58 K/uL (1.20-3.40); Lymphocytes % (auto) 4.3 %; Mean Corpuscular Hemoglobin 33.5 pg (25.0-34.0); Mean Corpuscular Hgb Conc 33.9 g/dL (32.0-36.0); Mean Platelet Volume 10.4 fL (9.4-12.4); Monocytes # (auto) 1.03 K/uL (0.11-0.59); Monocytes % (auto) 7.6 %; Neutrophils # (auto) 11.84 K/uL (1.40-6.50); Neutrophils % (auto) 87.3 %; Platelet Count 182 K/uL (130-400); RDW Coefficient of Variation 13.2 % (11.5-14.5); RDW Standard Deviation 48.4 fL (36.4-46.3); Red Blood Count 5.19 M/uL (4.70-6.10); White Blood Count 13.57 K/ul (4.8-10.8)
[2023-03-24 10:46] LABS: Albumin Globulin Ratio 1.6 (0.9-2); Albumin Level 3.9 gm/dl (3.4-5.0); BUN Creatinine Ratio 10.3 (10-20); Bilirubin,Total 3.4 mg/dl (0.2-1.0); Calcium 9.2 mg/dl (8.6-10.3); Creatinine Clr Calc Pharmacy 132.2 ml/min; Est GFR (African American) 123.4 ml/min; Est GFR (Non-African American) 106.5 ml/min; Globulin 2.5 gm/dl (2.5-4.0); Potassium 3.7 mmol/L (3.5-5.1); Total Protein 6.4 gm/dl (6.0-8.3)
--- NOTE | 2023-03-24 11:25 | Hospitalist Progress Note ---
Date of Service March 24, 2023 Assessment & Plan (1) Abdominal pain: Plan: Secondary to biliary colic/cholangitis due to Cholelithiasis and choledocholithiasis Patient is 42 year old male with PMH ETOH use, medical marijuana use for anxiety, presented to ER with c/o epigastric abdominal pain x 5 days, dark urine, yellow stools. Intermittent epigastric pain after eating fatty foods x 1 year. In ER afebrile, P: 111, BP: 133/95, R: 18, 96% on RA No leukocytosis, T Bili: 8, AST: 278, ALT: 347, Alk Phos: 101, Lipase: WNL CT abd/pelvis: There is mild intra and extrahepatic biliary ductal dilatation. No obstructing stone or lesion is clearly identified by CT. There are gallstones and biliary sludge with no CT evidence of acute cholecystitis. In ER given 1L NSS, Zosyn Currently denies abdominal pain Biliary Colic. Suspect possible passed gallstone or obstructing gallstone NPO midnight,IVF,Antiemetics, pain medications as needed. Appreciate GI input and recommendation Status post ERCP and to a stent placement in biliary tract and also endoscopic ultrasound today Endoscopy did show reflux esophagitis-PPI will be continued Received 1 dose of Zosyn during the procedure and will be continued as per recommendation from GI US gallbladder-showed distended gallbladder with sludge and stone. Acute cholecystitis was not excluded Appreciate surgery input and recommendation for endoscopic cholecystectomy tomorrow Patient remains stable following the procedure of ERCP and upper endoscopic ultrasound Will be n.p.o. after midnight for cholecystectomy tomorrow Status post laparoscopic cholecystectomy Remains stable without any significant symptoms Has been feeling much better today with minimal bloating due to gas Has been passing gas but bowel not moved yet Denies any other significant symptoms and tolerating clears Will advance diet as tolerated and will increase ambulation If he has been feeling much better by the end of the day he will be discharged home this evening Will change Zosyn to Augmentin to finish the course of about 10 days in total (2) Hyperbilirubinemia: Plan: Due to obstruction from choledocholithiasis (3) Elevated LFTs: Plan: Due to choledocholithiasis LFTs are improving and will recheck tomorrow LFTs have been improving (4) Gallstone: (5) Sinus tachycardia: Plan: EK, sinus tachycardia per my interpretation IVF Monitor on telemetry (6) Alcohol use: Plan: Drinks 4-8 glasses wine daily. Reported last drink 5 days ago ETOH cessation recommended DVT Prophylaxis SCDs Full Code as per discussion with pt Does not follow with PCP for routine care Likely discharge this afternoon Admission and Anticipated Discharge Date Admission Date: March 21, 2023 Subjective 03/22/2023 The patient was seen and examined in medical telemetry unit He is a status post ERCP for choledocholithiasis and cholelithiasis Has been feeling much better He will have cholecystectomy tomorrow 03/23/2023 The patient was seen and examined in medical telemetry unit He is a status post laparoscopic cholecystectomy Denies any significant symptoms except minimal pain at the laparoscopic site No fever and no chills Started on a clear liquid diet 03/24/2023 The patient was seen and examined in medical telemetry unit He has been tolerating clears and will advance diet as tolerated from today Feels a little bloated and has been passing gas but bowel is not moved Denies any nausea or vomiting, denies any other significant symptoms Advised to ambulate in the hallway Review of Systems Review of Systems: All systems reviewed and are unremarkable except as noted below Physical Exam Physical Exam: Lying in bed comfortably Constitutional: average body habitus; not ill appearing Eyes: PERRL, conjunctivae normal, anicteric sclerae ENMT: external ear and nose normal, oropharynx normal Neck: trachea midline, no thyromegaly Respiratory: no respiratory distress Auscultation: lungs clear to auscultation bilaterally Cardiovascular: Rate/Rhythm: regular rate, regular rhythm and + tachycardic Heart Sounds: normal S1 and normal S2; no murmur Extremities: no edema Gastrointestinal (Abdomen): Inspection/Auscultation: + abdomen distended and normal bowel sounds Percussion/Palpation: + abdomen tender (Minimally tender upper quadrants) and abdomen soft; no guarding and abdomen not rigid Musculoskeletal: No acute arthritis involving any of the joint Neurologic: normal touch/pain/proprioception and moves all extremities; no focal motor deficits Psychiatric: A+Ox3, euthymic affect Lymphatic: no cervical or axillary lymphadenopathy Results & Data Results & Data Vital Signs (Past 12 Hours) Vital Signs Temp Pulse Pulse Resp BP Pulse Ox O2 Del Method 03/24/23 08:01 37.0 C 96 H 16 133/90 92 Room Air 03/24/23 04:05 36.6 C 113 H 18 143/105 H 92 Room Air 03/24/23 00:05 36.5 C 104 H 18 141/104 H 94 Room Air Laboratory Results Short CBC 03/24/23 Range/Units 10:07 WBC 13.57 H (4.8-10.8) K/ul Hgb 17.4 (14.0-18.0) g/dl Hct 51.4 (42.0-52.0) % Plt Count 182 (130-400) K/uL BMP 03/24/23 10:07 Sodium 134 L Potassium 3.7 Chloride 97 L Carbon Dioxide 28 BUN 9 Creatinine 0.87 Glucose 122 H Calcium 9.2 Liver Function 03/24/23 Range/Units 10:07 Total Bilirubin 3.4 H (0.2-1.0) mg/dl AST 120 H (13-39) U/L ALT 278 H (7-52) U/L Alkaline Phosphatase 67 (34-104) U/L Albumin 3.9 (3.4-5.0) gm/dl Medications Administered Current Inpatient Medications Acetaminophen (Acetaminophen 325 Mg Tab) 650 mg PO Q6H PRN PRN Reason: Pain or Fever Stop: 04/21/23 22:00 Last Admin: 03/22/23 22:57 Dose: 650 mg Diphenhydramine HCl (Diphenhydramine Capsule 25 Mg Cap) 25 mg PO Q4H PRN PRN Reason: hives, itching or insomnia Stop: 04/22/23 09:48 Hydromorphone HCl (Hydromorphone Inj 0.5 Mg/0.5 Ml Syr) 0.5 mg IV Q6H PRN PRN Reason: Mod-Sev Pain (Scale 4-10) Stop: 04/04/23 20:33 Last Admin: 03/24/23 01:28 Dose: 0.5 mg Acetaminophen (Ofirmev) 1,000 mg in 100 mls @ 400 mls/hr IV Q12H PRN PRN Reason: Pain or Fever Stop: 03/24/23 20:33 Last Infusion: 03/22/23 00:10 Dose: Infused Lactated Ringer's (Lr) 1,000 mls @ 15 mls/hr IV .Q24H NICHOLAS Stop: 04/21/23 11:29 Last Admin: 03/23/23 13:58 Dose: Not Given Piperacillin Sod/Tazobactam (Sod 4.5 gm/ Dextrose) 100 mls @ 25 mls/hr IV Q8H NICHOLAS; Protocol Stop: 03/26/23 21:59 Last Infusion: 03/24/23 10:32 Dose: Infused Ondansetron HCl (Ondansetron Inj 2 Mg/Ml 2 Ml Vial) 4 mg IV Q6H PRN PRN Reason: Nausea Stop: 04/20/23 20:33 Oxycodone/Acetaminophen (Oxycodone/Acetaminophen 5mg/325mg Tab) 1 tab PO Q4H PRN PRN Reason: MODERATE Pain (4,5,6) & Pre PT Stop: 04/06/23 09:48 Last Admin: 03/24/23 09:25 Dose: 1 tab Polyethylene Glycol (Polyethylene (Miralax) 17 Gm Pack) 17 gm PO DAILY PRN PRN Reason: Constipation Stop: 04/20/23 20:33 (1) Abdominal pain Abdominal location: upper abdomen, unspecified Qualified Code(s): R10.10 - Upper abdominal pain, unspecified (4) Gallstone Biliary obstruction: with biliary obstruction Cholecystitis presence: without cholecystitis Qualified Code(s): K80.21 - Calculus of gallbladder without cholecystitis with obstruction
[2023-03-24] MEDS: LACTATED RINGER'S 1,000 ML IV SCH (12:48)
[2023-03-24] MEDS: AMOXICILLIN/CLAVULANATE 875 MG TAB PO SCH (16:17)
[2023-03-24] MEDS ORDERED: SODIUM CHLORIDE 0.9% 500 ML IV SCH (20:15)
[2023-03-24] MEDS: ACETAMINOPHEN 1,000 MG/100 ML VIAL IV PRN (20:27)
[2023-03-24] MEDS ORDERED: SODIUM CHLORIDE 0.9% 1,000 ML IV SCH ×2 (21:30)
[2023-03-25] MEDS: oxyCODONE/ACETAMINOPHEN 5mg/325mg TAB PO PRN ×3 (00:51→10:58)
[2023-03-25 07:43] LABS: Basophils # (auto) 0.02 K/uL (0.00-0.20); Basophils % (auto) 0.2 %; Eosinophils # (auto) 0.06 K/uL (0.00-0.50); Eosinophils % (auto) 0.5 %; Hematocrit (blood only) 47.2 % (42.0-52.0); Hemoglobin 16.1 g/dl (14.0-18.0); Immature Granulocytes # (auto) 0.08 K/uL (0.01-0.20); Immature Granulocytes % (auto) 0.6 %; Lymphocytes # (auto) 0.78 K/uL (1.20-3.40); Lymphocytes % (auto) 6.3 %; Mean Corpuscular Hemoglobin 33.1 pg (25.0-34.0); Mean Corpuscular Hgb Conc 34.1 g/dL (32.0-36.0); Mean Corpuscular Volume 96.9 fL (80.0-100.0); Mean Platelet Volume 10.8 fL (9.4-12.4); Monocytes # (auto) 1.02 K/uL (0.11-0.59); Monocytes % (auto) 8.2 %; Neutrophils # (auto) 10.52 K/uL (1.40-6.50); Neutrophils % (auto) 84.2 %; Platelet Count 157 K/uL (130-400); RDW Coefficient of Variation 13.1 % (11.5-14.5); RDW Standard Deviation 47.2 fL (36.4-46.3); Red Blood Count 4.87 M/uL (4.70-6.10); White Blood Count 12.48 K/ul (4.8-10.8)
[2023-03-25 07:53] LABS: Albumin Level 3.5 gm/dl (3.4-5.0); BUN Creatinine Ratio 16.7 (10-20); Bilirubin Direct 1.5 mg/dl (0-0.2); Bilirubin,Total 3.4 mg/dl (0.2-1.0); Calcium 8.6 mg/dl (8.6-10.3); Creatinine Clr Calc Pharmacy 174.3 ml/min; Est GFR (African American) 138.2 ml/min; Est GFR (Non-African American) 119.3 ml/min; Magnesium 1.4 mg/dl (1.7-2.4); Potassium 3.5 mmol/L (3.5-5.1); Total Protein 5.8 gm/dl (6.0-8.3)
[2023-03-25] MEDS: AMOXICILLIN/CLAVULANATE 875 MG TAB PO SCH (08:39)
[2023-03-25 09:30] LABS: Phosphorus 2.3 mg/dl (2.5-4.9)
[2023-03-25] MEDS: MAGNESIUM SULFATE / D5W 1 GM/100 ML BAG IV SCH ×2 (10:56→13:03)
--- NOTE | 2023-03-25 11:15 | Hospitalist Progress Note ---
Date of Service March 25, 2023 Assessment & Plan (1) Abdominal pain: Plan: Secondary to biliary colic/cholangitis due to Cholelithiasis and choledocholithiasis Patient is 42 year old male with PMH ETOH use, medical marijuana use for anxiety, presented to ER with c/o epigastric abdominal pain x 5 days, dark urine, yellow stools. Intermittent epigastric pain after eating fatty foods x 1 year. In ER afebrile, P: 111, BP: 133/95, R: 18, 96% on RA No leukocytosis, T Bili: 8, AST: 278, ALT: 347, Alk Phos: 101, Lipase: WNL CT abd/pelvis: There is mild intra and extrahepatic biliary ductal dilatation. No obstructing stone or lesion is clearly identified by CT. There are gallstones and biliary sludge with no CT evidence of acute cholecystitis. In ER given 1L NSS, Zosyn Currently denies abdominal pain Biliary Colic. Suspect possible passed gallstone or obstructing gallstone NPO midnight,IVF,Antiemetics, pain medications as needed. Appreciate GI input and recommendation Status post ERCP and to a stent placement in biliary tract and also endoscopic ultrasound today Endoscopy did show reflux esophagitis-PPI will be continued Received 1 dose of Zosyn during the procedure and will be continued as per recommendation from GI US gallbladder-showed distended gallbladder with sludge and stone. Acute cholecystitis was not excluded Appreciate surgery input and recommendation for endoscopic cholecystectomy tomorrow Patient remains stable following the procedure of ERCP and upper endoscopic ultrasound Will be n.p.o. after midnight for cholecystectomy tomorrow Status post laparoscopic cholecystectomy Remains stable without any significant symptoms Has been feeling much better today with minimal bloating due to gas Has been passing gas but bowel not moved yet Denies any other significant symptoms and tolerating clears Will advance diet as tolerated and will increase ambulation If he has been feeling much better by the end of the day he will be discharged home this evening Will change Zosyn to Augmentin to finish the course of about 10 days in total Has had fever last night, no more since then Has been tolerating regular diet and bowel is moved Advised to ambulate more in the hallway and if he feels better he will be discharged home this afternoon (2) Hyperbilirubinemia: Plan: Due to obstruction from choledocholithiasis (3) Elevated LFTs: Plan: Due to choledocholithiasis LFTs are improving and will recheck tomorrow LFTs have been improving and much better as of today there is 03/25/2023 (4) Gallstone: (5) Sinus tachycardia: Plan: EK, sinus tachycardia per my interpretation IVF Monitor on telemetry Tachycardia could be part of withdrawal symptoms from alcohol Advised to drink more fluid (6) Alcohol use: Plan: Drinks 4-8 glasses wine daily. Reported last drink 5 days ago ETOH cessation recommended DVT Prophylaxis SCDs Full Code as per discussion with pt Does not follow with PCP for routine care Likely discharge this afternoon Admission and Anticipated Discharge Date Admission Date: March 21, 2023 Subjective 03/22/2023 The patient was seen and examined in medical telemetry unit He is a status post ERCP for choledocholithiasis and cholelithiasis Has been feeling much better He will have cholecystectomy tomorrow 03/23/2023 The patient was seen and examined in medical telemetry unit He is a status post laparoscopic cholecystectomy Denies any significant symptoms except minimal pain at the laparoscopic site No fever and no chills Started on a clear liquid diet 03/24/2023 The patient was seen and examined in medical telemetry unit He has been tolerating clears and will advance diet as tolerated from today Feels a little bloated and has been passing gas but bowel is not moved Denies any nausea or vomiting, denies any other significant symptoms Advised to ambulate in the hallway 03/25/2023 The patient was seen and examined in medical telemetry unit He has been feeling much better Has had fever last night without any other symptom Heart rate remains elevated around 120s likely secondary to withdrawal from alcohol Has been tolerating regular diet and ambulating in the hallway without any difficulties Review of Systems Review of Systems: All systems reviewed and are unremarkable except as noted below Physical Exam Physical Exam: Lying in bed comfortably Constitutional: average body habitus; not ill appearing Eyes: PERRL, conjunctivae normal, anicteric sclerae ENMT: external ear and nose normal, oropharynx normal Neck: trachea midline, no thyromegaly Respiratory: no respiratory distress Auscultation: lungs clear to auscultation bilaterally Cardiovascular: Rate/Rhythm: regular rate, regular rhythm and + tachycardic Heart Sounds: normal S1 and normal S2; no murmur Extremities: no edema Gastrointestinal (Abdomen): Inspection/Auscultation: + abdomen distended and normal bowel sounds Percussion/Palpation: + abdomen tender (Minimally tender upper quadrants) and abdomen soft; no guarding and abdomen not rigid Musculoskeletal: No acute arthritis involving any of the joint Neurologic: normal touch/pain/proprioception and moves all extremities; no focal motor deficits Psychiatric: A+Ox3, euthymic affect Lymphatic: no cervical or axillary lymphadenopathy Results & Data Results & Data Vital Signs (Past 12 Hours) Vital Signs Temp Pulse Pulse Resp BP BP Pulse Ox 03/25/23 08:00 123 H 03/25/23 07:47 37 C 120 H 18 134/96 96 03/25/23 02:49 37.1 C 114 H 18 131/94 94 03/24/23 23:39 97 H O2 Del Method 03/25/23 08:00 03/25/23 07:47 Room Air 03/25/23 02:49 Room Air 03/24/23 23:39 Laboratory Results Short CBC 03/25/23 Range/Units 06:54 WBC 12.48 H (4.8-10.8) K/ul Hgb 16.1 (14.0-18.0) g/dl Hct 47.2 (42.0-52.0) % Plt Count 157 (130-400) K/uL BMP 03/25/23 06:54 Sodium 136 Potassium 3.5 Chloride 101 Carbon Dioxide 26 BUN 11 Creatinine 0.66 Glucose 102 H Calcium 8.6 Liver Function 03/25/23 Range/Units 06:54 Total Bilirubin 3.4 H (0.2-1.0) mg/dl Direct Bilirubin 1.5 H (0-0.2) mg/dl AST 40 H (13-39) U/L ALT 160 H (7-52) U/L Alkaline Phosphatase 60 (34-104) U/L Albumin 3.5 (3.4-5.0) gm/dl Medications Administered Current Inpatient Medications Acetaminophen (Acetaminophen 325 Mg Tab) 650 mg PO Q6H PRN PRN Reason: Pain or Fever Stop: 04/21/23 22:00 Last Admin: 03/22/23 22:57 Dose: 650 mg Amoxicillin/Clavulanate Potassium (Amoxicillin/Clavulanate 875 Mg Tab) 1 tab PO BIDM [facility]; Protocol Stop: 03/28/23 16:59 Last Admin: 03/25/23 08:39 Dose: 1 tab Diphenhydramine HCl (Diphenhydramine Capsule 25 Mg Cap) 25 mg PO Q4H PRN PRN Reason: hives, itching or insomnia Stop: 04/22/23 09:48 Hydromorphone HCl (Hydromorphone Inj 0.5 Mg/0.5 Ml Syr) 0.5 mg IV Q6H PRN PRN Reason: Mod-Sev Pain (Scale 4-10) Stop: 04/04/23 20:33 Last Admin: 03/24/23 16:17 Dose: 0.5 mg Magnesium Sulfate/Dextrose (Magnesium Sulfate / D5w) 1 gm in 100 mls @ 50 mls/hr IV Q2H NICHOLAS Stop: 03/25/23 13:29 Last Admin: 03/25/23 10:56 Dose: 50 mls/hr Ondansetron HCl (Ondansetron Inj 2 Mg/Ml 2 Ml Vial) 4 mg IV Q6H PRN PRN Reason: Nausea Stop: 04/20/23 20:33 Oxycodone/Acetaminophen (Oxycodone/Acetaminophen 5mg/325mg Tab) 1 tab PO Q4H PRN PRN Reason: MODERATE Pain (4,5,6) & Pre PT Stop: 04/06/23 09:48 Last Admin: 03/25/23 10:58 Dose: 1 tab Polyethylene Glycol (Polyethylene (Miralax) 17 Gm Pack) 17 gm PO DAILY PRN PRN Reason: Constipation Stop: 04/20/23 20:33 (1) Abdominal pain Abdominal location: upper abdomen, unspecified Qualified Code(s): R10.10 - Upper abdominal pain, unspecified (4) Gallstone Biliary obstruction: with biliary obstruction Cholecystitis presence: without cholecystitis Qualified Code(s): K80.21 - Calculus of gallbladder without cholecystitis with obstruction
--- NOTE | 2023-03-25 15:31 | Discharge Summary ---
Date of Service March 25, 2023 Admission HPI Per Admitting Provider Patient is 42 year old male with PMH ETOH use, medical marijuana use for anxiety, presented to ER with c/o abdominal pain x 5 days. History obtained from patient and patient's girlfriend. States for past year having intermittent epigastric pain with eating fatty foods and sometimes with spicy foods. 5 days ago epigastric pain was sharp and radiates to back. Pain across upper abdomen. The last couple days the pain was worse and has continued intermittently. When had the epigastric pain he felt like he was having trouble taking a breath. Otherwise denies SOB or chest pain. Hasn't been eating much past several days. Stools have been loose and watery. Past couple of days stools are yellow in coloration. Past couple days noticed eyes looked yellow. Urine is dark in coloration. States currently not having abdominal pain. Drinks 4-8 glasses of wine daily. Last drank ETOH 5 days ago. Denies history of ETOH withdrawal, seizures or DT's in past. Denies itching. Denies fever/chills, diaphoresis, PANIAGUA, dizziness, syncope, vision changes, neck pain, CP, SOB, palpitations, cough, sore throat, choking, otalgia, rhinorrhea, paresthesias, weakness, extremity edema, rashes, dysuria, hematuria, urinary frequency. Admission Exam Per Admitting Provider On exam General: Well hydrated, no acute distress and not ill appearing Eyes: PERRL, conjunctivae normal, not pale, +icterus, EOM intact bilaterally ENMT: External ear and nose normal, oropharynx normal Respiratory: Normal respiratory effort, no respiratory distress, lungs clear to auscultation, no crackles and no wheezes Cardiovascular: Pulse is RRR. S1 S2 Gastrointestinal (Abdomen): Abdomen is not distended, soft, non-tender to palpation, no guarding, no palpable hepatosplenomegaly, normal bowel sounds Musculoskeletal: No pedal edema Neurologic: Alert and oriented x 3, No focal weakness, sensation grossly intact Psychiatric: Alert and oriented x 3, euthymic affect Principal Diagnosis Biliary colic, choledocholithiasis status post ERCP with stent placement, cholelithiasis status post laparoscopic cholecystectomy Discharge Exam Lying in bed comfortably Constitutional average body habitus; not ill appearing Eyes PERRL, conjunctivae normal, anicteric sclerae ENMT external ear and nose normal, oropharynx normal Neck trachea midline, no thyromegaly Respiratory no respiratory distress Auscultation: lungs clear to auscultation bilaterally Cardiovascular Rate/Rhythm: regular rate, regular rhythm and + tachycardic Heart Sounds: normal S1 and normal S2; no murmur Extremities: no edema Gastrointestinal (Abdomen) Inspection/Auscultation: + abdomen distended and normal bowel sounds Percussion/Palpation: + abdomen tender (Minimally tender upper quadrants) and abdomen soft; no guarding and abdomen not rigid Neurologic normal touch/pain/proprioception and moves all extremities; no focal motor deficits Psychiatric A+Ox3, euthymic affect Lymphatic no cervical or axillary lymphadenopathy Discharge Data Allergies Allergy/AdvReac Type Severity Reaction Status Date / Time No Known Allergies Allergy Unknown Verified 03/17/08 18:22 Consultations 03/21/23 17:43 ED Decision to Admit Stat 03/22/23 07:00 Consult General Surgery Routine 03/22/23 08:00 Consult Gastroenterology Routine Procedures Performed Operation Date: 03/23/23 07:15 Actual Procedures p Laparoscopic Cholecystectomy(Not Applicable) - Gerhard Johnson MD Ordered Studies 03/21/23 14:07 CT abd pelvis IV con only Stat 03/21/23 18:31 US gallbladder Urgent 03/22/23 09:39 US upper EUS PACS images Routine 03/22/23 11:30 FL ERCP biliary ductal Routine Hospital Course (1) Abdominal pain: Secondary to biliary colic/cholangitis due to Cholelithiasis and choledocholithiasis Patient is 42 year old male with PMH ETOH use, medical marijuana use for anxiety, presented to ER with c/o epigastric abdominal pain x 5 days, dark urine, yellow stools. Intermittent epigastric pain after eating fatty foods x 1 year. In ER afebrile, P: 111, BP: 133/95, R: 18, 96% on RA No leukocytosis, T Bili: 8, AST: 278, ALT: 347, Alk Phos: 101, Lipase: WNL CT abd/pelvis: There is mild intra and extrahepatic biliary ductal dilatation. No obstructing stone or lesion is clearly identified by CT. There are gallstones and biliary sludge with no CT evidence of acute cholecystitis. In ER given 1L NSS, Zosyn Currently denies abdominal pain Biliary Colic. Suspect possible passed gallstone or obstructing gallstone NPO midnight,IVF,Antiemetics, pain medications as needed. Appreciate GI input and recommendation Status post ERCP and to a stent placement in biliary tract and also endoscopic ultrasound today Endoscopy did show reflux esophagitis-PPI will be continued Received 1 dose of Zosyn during the procedure and will be continued as per recommendation from GI US gallbladder-showed distended gallbladder with sludge and stone. Acute cholecystitis was not excluded Appreciate surgery input and recommendation for endoscopic cholecystectomy tomorrow Patient remains stable following the procedure of ERCP and upper endoscopic ultrasound Will be n.p.o. after midnight for cholecystectomy tomorrow Status post laparoscopic cholecystectomy Remains stable without any significant symptoms Has been feeling much better today with minimal bloating due to gas Has been passing gas but bowel not moved yet Denies any other significant symptoms and tolerating clears Will advance diet as tolerated and will increase ambulation If he has been feeling much better by the end of the day he will be discharged home this evening Will change Zosyn to Augmentin to finish the course of about 10 days in total Has had fever last night, no more since then Has been tolerating regular diet and bowel is moved Advised to ambulate more in the hallway and if he feels better he will be discharged home this afternoon (2) Hyperbilirubinemia: Due to obstruction from choledocholithiasis (3) Elevated LFTs: Due to choledocholithiasis LFTs are improving and will recheck tomorrow LFTs have been improving and much better as of today there is 03/25/2023 (4) Gallstone: (5) Sinus tachycardia: EK, sinus tachycardia per my interpretation IVF Monitor on telemetry Tachycardia could be part of withdrawal symptoms from alcohol Advised to drink more fluid (6) Alcohol use: Drinks 4-8 glasses wine daily. Reported last drink 5 days ago ETOH cessation recommended DVT Prophylaxis SCDs Full Code as per discussion with pt Does not follow with PCP for routine care Likely discharge this afternoon Total Time Total Time Spent Total Time Spent (In Minutes): 35 minutes Discharge Plan Discharge Items Patient Disposition: Home - Self-Care Reason For Visit: ABD PAIN Discharge Diagnosis: Biliary colic, choledocholithiasis status post ERCP with stent placement, cholelithiasis status post laparoscopic cholecystectomy Condition on Discharge: Good Activity: Per Instructions section Lifting: No more than 10 pounds Sexual Activity: Wait until after follow-up appointment Exercise/Sports: Wait until after follow-up appointment Non-emergency contact: Primary Care Provider and Surgeon Call non-emergency contact if: you have any medication questions, your symptoms worsen, your pain is not controlled, your pain is worsening, your pain is unusual for you, your temperature is above 101.5, your wound has increased redness, your wound has increased drainage and your wound pain has increased Follow-up/Referrals: Tha Wills MD [Physician] - (The GI office will contact you for a follow up appointment/ stent removal.) Anurag Mcclendon MD [Hospitalist] - 04/02/23 11:20 am (Date & Time 04/02/2023 11:20 AM Provider Anurag Mcclendon MD Department Family Medicine [facility] ) Diet: Heart Healthy and Low Fat Addtl Attending Provider Instructions: Please take precautions to avoid falls Finish the course of antibiotic as advised You can try some [id number] probiotics Advised to quit drinking Please keep appointment with the healthcare providers Post-Surgical ~Discharge Instructions Activity Recommendations: - lifting limitation: (10 pounds for 2 weeks), - exercise/sex/sports limit: (nonstrenuous for 2 weeks), - driving or machine use limit: (none for 1 week), - Shower/bathe limit: (may shower beginning tomorrow) Diet: - Resume previous diet SPECIAL CARE INSTRUCTIONS: - May shower in 24 hours. Let water run over area and pat dry. - Leave dermabond on for one week. - Call the surgeon's office with any questions or concerns - - (ex. temperature higher than 101 degrees F, excessive bleeding or pain). MEDICATIONS: - Resume previous medications unless instructed otherwise by your surgeon. - Ibuprofen 600 mg every 6 hours with food - Percocet 1 every 4 hours, as needed for pain FOLLOW UP VISIT: - If not already scheduled, please call the office to schedule a two week follow-up appointment. Office number Pending Studies at Discharge: No Stand-Alone Forms: [employer], Smoking Cessation Medications and DC Order Prescriptions: New oxycodone-acetaminophen [Percocet] 5-325 mg tablet 1 tab PO Q6H PRN (Reason: pain) Qty: 10 0RF amoxicillin-pot clavulanate 875-125 mg Tablet 1 tab PO BIDM Qty: 12 0RF Discharge Orders: Discharge Order (Routine); Ordered 03/25/23 Ordered By: Glenda Licea Admission Data Admit Date/Time: 03/21/23 17:47 Attending Provider: Glenda Licea Admit Provider: Radha Hurley I. Primary Care Provider: PCP,NO Other Providers: Radha Hurley I.; Gerhard Johnson; Nery Strickland
--- NOTE | 2023-03-26 14:08 | Electrocardiogram Report ---
Test Reason : Blood Pressure : / mmHG Vent. Rate : 132 BPM Atrial Rate : 132 BPM P-R Int : 166 ms QRS Dur : 086 ms QT Int : 280 ms P-R-T Axes : 016 -46 002 degrees QTc Int : 414 ms Sinus tachycardia Possible Left atrial enlargement Left anterior fascicular block Anterior infarct , age undetermined Abnormal ECG Confirmed by Deon Carranza ([id number]) on 03/26/2023 2:08:37 PM Referred By: REFERRED SELF Confirmed By:Nik Carranza
== END 2023-03-25 16:58 | disposition home or self-care (01) | DRG 419 ==
LOC: ED 13:58 → SUATTDRO 17:47 → 2N 17:47